=== PATIENT | male | born 1955 | race Caucasian/White ===

== ENCOUNTER 2019-01-22 22:01 | Observation (INO) | payer OTHER, SELFPAY ==
[2019-01-22 22:01] VITALS: BP 146/86; PULSE 92; RESP 19; TEMP 36.7; O2SAT 98; BMI 27.8
--- NOTE | 2019-01-22 22:03 | ED.RN ---
RN CALLED FOR EKG, PULLED OLD EKGS FOR
--- NOTE | 2019-01-22 22:08 | RAD_ITS ---
STUDY: X-RAY CHEST REASON FOR EXAM: Male, 63 years old. Chest pain TECHNIQUE: AP COMPARISON: May 04, 2014. FINDINGS: There is a poorly defined irregular nodular opacity at the left base. Right lung is clear. There is no demonstrated pleural abnormality. Normal size heart. Normal mediastinum and ruben. Normal visualized pulmonary arteries. Normal visualized aortic arch and descending thoracic aorta. Dorsal spine demonstrates spondylosis Normal visualized ribs, clavicles, and shoulders. There is no demonstrated abnormality of the visualized soft tissue structures of the upper abdomen. Density in left lower lobe may represent scarring. CT would be useful for further evaluation to exclude possibility of nodule. This appears slightly more conspicuous when compared with the prior study. RAD/Chest 1 View (Portable) IMPRESSION: Irregular density in left lower lobe possibly scarring although CT recommended to exclude parenchymal nodule Electronically Signed: Ruben Villareal MD at 22:27 EDT , Service support ,
--- NOTE | 2019-01-22 22:09 | EKG12_ITS ---
Test Reason : CP REPEAT Blood Pressure : / mmHG Vent. Rate : 093 BPM Atrial Rate : 093 BPM P-R Int : 184 ms QRS Dur : 086 ms QT Int : 366 ms P-R-T Axes : 038 -17 013 degrees QTc Int : 455 ms Normal sinus rhythm Normal ECG Confirmed by JESSICA GARZON ([id number]), sound editor ARIN BARRY ([id number]) on 01/28/2019 8:14:03 AM Referred By: KRISTEN Confirmed By:JESSICA GARZON
--- NOTE | 2019-01-22 22:10 | ED.DCSUM_ITS ---
History of Present Illness Chief Complaint: Chest Pain Informant: Patient Onset: Today - 2129 Context: Sudden Onset Timing: Continuous Quality: Elephant sitting on my chest Location: Substernal Current Severity: Moderate Maximum Severity: Severe Worsened by: Walking up incline to enter emergency department Relieved by: Nothing Associated Symptoms: Diaphoresis, shortness of breath, nausea radiation left upper extremity Narrative: Patient is a 63-year-old male who presents with substernal heaviness that started at 2100 after he returned from administrative meeting. States he was walking his house. He reports associated symptoms and radiation to the left shoulder and arm. He does have history of coronary disease with stent placement 2005. 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 He discontinued taking aspirin 1-1/2 years ago. He states when he had his cardiac event this occurred during exercise. He did have chest heaviness as well. Prior similar symptoms: Yes - 2005 Recent Illness/Hospitalization: No - Past Medical History (1) Coronary atherosclerosis of [place] coronary vessel Status: Acute Past Medical History - Allergies and Home Meds Allergies/Adverse Reactions: Allergies No Known Allergies Allergy (Verified 01/22/19 22:05) Primary Care Physician: Franny Cortez MD [Primary Care Provider] - Prior records reviewed: Yes Surgical History: - - Cardiac catheterization with angioplasty and stent placement Lives: Spouse/ Significant Other Smoking Status: Never smoker Alcohol: Occasional Drugs: None Review of Systems General: Denies: Chills, Fever, Sweats Eyes: Denies: Visual changes - bilaterally, Blurred Vision - bilaterally, Diplopia ENT: Denies: Rhinorrhea, Sore throat Cardiovascular: Reports: Chest pain. Denies: Palpitations, Heart racing, -, - Respiratory: Reports: Dyspnea, Dyspnea on exertion. Denies: Cough, Sputum, Orthopnea, Paroxysmal nocturnal dyspnea, -, - Gastrointestinal: Reports: - - Is no history of hiatal hernia or GERD.. Denies: Abdominal pain, Nausea, Vomiting, Diarrhea, Melena, Hematochezia Genitourinary: Denies: Dysuria, Hematuria, Frequency Musculoskeletal: Reports: Extremity Pain - Left upper extremity. Denies: Myalgias, Arthralgias, Neck pain, Back pain, Swelling Skin: Denies: Rash, Wounds Neurological: Denies: Headache, Weakness, Numbness Hematologic: Denies: Easy bruising, Easy bleeding Allergy: Denies: Uticaria, Swelling of the mouth Physical Exam Vital Signs/Narrative: Vital Signs Temp Pulse Resp BP Pulse Ox 01/22/19 22:01 98.0 F 92 19 H 146/86 H 98 Inital Vital Signs reviewed: Yes General: Well nourished, Well developed, No Acute Distress Head: Normocephalic, Atraumatic Eyes: Perrl, EOMI ENT: Moist mucous membranes, No rhinorrhea Neck: Supple, Nontender, No lymphadenopathy, No JVD Cardiovascular: Regular rate, Regular rhythm, No murmurs, Normal S1, Normal S2 Respiratory: No distress, CTA bilaterally, Chest nontender Abdomen: Soft, Nontender, Nondistended, Normal bowel sounds Back: Nontender, Normal Inspection Extremities: Nontender, No edema Skin: Normal color, No rash Neurological: Alert, Oriented x3, Cranial nerves II-XII grossly intact, Normal Strength, Normal Sensation Psychological: Normal affect, Normal Mood Diagnostic/Tx/Re-eval Chest X-Ray - ED: 1 View, Read by ED Physician, Normal, Heart, Lungs, Mediastinum, Bony Structures, No Acute Disease - Rhythm Strip Rhythm Strip: Sinus Rhythm Rate: 88 Ectopy: None - EKG Initial EKG Interpretation: Sinus Rhythm - Trickle rate is 90. FL interval 284 ms. QS duration 84 ms. QT duration 360 ms. [place] is normal. The EKG appears normal. The EKG is unchanged from April 25, 2006. - Medical Decision Making Patient presents with concerning story and symptoms. He received 4 baby aspirin, nitro series. First EKG reveals no evidence of ischemia. Heart score is 4. Will repeat EKG 10 to 50 minutes after first to see if there is any change since onset started proximal to 30 minutes prior to presentation. Patient is chest pain has improved markedly with 2 nitros. Presently complaining of nausea. Zofran was ordered. After he received Zofran he will receive his third dose of nitro. Concerned this is cardiac. Hospitalist has been paged for observation status. She was reassessed at 2320. He feels nauseated and slightly woozy. He no longer has left upper extremity discomfort. Reports little improvement after Zofran. Awaiting to speak with hospitalist and admit patient. ED Disposition - Plan for ED Patient: Disposition: Acute Care Hospital [facility] Diagnosis: Angina of effort Referrals: Franny Cortez MD [Primary Care Provider] -
--- NOTE | 2019-01-22 22:15 | EKG12_ITS ---
Test Reason : CP Blood Pressure : / mmHG Vent. Rate : 090 BPM Atrial Rate : 090 BPM P-R Int : 184 ms QRS Dur : 084 ms QT Int : 360 ms P-R-T Axes : 038 -25 022 degrees QTc Int : 440 ms Normal sinus rhythm Normal ECG Confirmed by JESSICA GARZON ([id number]), newspaper or periodical editor ARIN BARRY ([id number]) on 01/28/2019 8:13:34 AM Referred By: KRISTEN Confirmed By:JESSICA GARZON
[2019-01-22] MEDS: Aspirin 81 MG TAB.CHEW 324 MG PO (22:17)
[2019-01-22 22:19] LABS: Absolute Lymphocyte Count 2.01 X10^3/uL (0.83-4.51); Absolute Neutrophil Count 4.1 X10^3/uL (2.0-7.7); Basophil# 0.05 X10^3/uL; Basophil% 0.7 % (0-1); Eosinophil# 0.15 X10^3/uL; Eosinophils% 2.2 % (0-5); Hematocrit 38.5 % (40-54); Lymphocyte # 2.01 X10^3/ul (4.0); Lymphocyte % 29.3 % (19-41); Mean Corp Hgb Conc 36.4 g/dL (32-36); Mean Corpuscular Hgb 34.1 pg (27.0-32.0); Mean Corpuscular Volume 93.7 fL (80-94); Monocyte# 0.48 X10^3/uL; NRBC Flagged by Analyzer 0 % (0-5); Neutrophil # 4.11 X10^3/uL (2.7-7.7); Neutrophil % 59.9 % (47-70); Platelet Count 201 K/mm3 (150-450); RBC Distribution Width SD 43.9 fl (35.1-43.9); Red Blood Count 4.11 M/mm3 (4.6-6.2); White Blood Count 6.9 K/mm3 (4.4-11.0)
[2019-01-22] MEDS: Nitroglycerin SL (ED/IMG/CATH) 0.4 MG TABLET SUBLINGUAL (22:22)
[2019-01-22 22:27] VITALS: BP 135/87; PULSE 103
[2019-01-22] MEDS: Nitroglycerin (INPATIENT USE) 0.4 MG TAB.SUBL SUBLINGUAL ×2 (22:27→22:32)
[2019-01-22 22:32] VITALS: BP 145/84; PULSE 104
[2019-01-22 22:38] LABS: Anion Gap 5 (5-15); BUN 16 mg/dL (7-18); BUN/Creat Ratio 16.7 RATIO (10-20); Calcium,Total 8.5 mg/dL (8.5-10.1); Chloride 110 mmol/L (98-107); Creatinine, Serum 0.96 mg/dL (0.70-1.30); EST Glomerular Filtration Rate 84 mL/min (>60); Est Glom Filt Rate - Afr Amer 102 mL/min (>60); Estimated Creatinine Clearance 89.01 ml/min; Glucose 113 mg/dL (74-106); Potassium 3.8 mmol/L (3.5-5.1); Sodium Level 140 mmol/L (136-145)
[2019-01-22] MEDS: Ondansetron 4 MG/2 ML Vial IV (22:43)
--- NOTE | 2019-01-22 22:45 | ED.RN ---
PT WAS C/O NAUSEA,ZOFRAN GIVEN. AT THE BEDSIDE.
[2019-01-22 22:46] VITALS: BP 107/69; PULSE 79; RESP 16; O2SAT 97
[2019-01-22 23:07] VITALS: BP 120/78; PULSE 77; RESP 16; O2SAT 97
--- NOTE | 2019-01-22 23:23 | PCM.HP.STD ---
Problem List (1) Coronary atherosclerosis of [place] coronary vessel Status: Acute (2) Chest pain at rest Status: Acute History of Present Illness Date of Admission: 01/22/19 Chief Complaint: chest pain The patient is a 63 year old M with a significant history of CAD status post stent in his posterior descending artery in 2005 who presented with chest pain that started at rest and on the same day of admission. He describes chest pain as pressure and as an elephant sitting on his chest. His chest pain radiated to his shoulder and into his left. He described the pain in his left arm aching. He denies any ameliorating or aggravating factors while at home. However the emergency department he was given nitroglycerin x3 to help with his pain. At the time of events evaluation his chest pain is gone away. However he continued to have some pain in his left arm. Patient if his symptoms is nausea without vomiting. Also he denies diaphoresis. He has no shortness of breath. At the emergency department EKG and troponin were unremarkable. His father had triple bypass around age 50. And his paternal grandfather from heart attack at age 52 Past Medical History Medical History: Medical History (Last Updated 01/23/19 @ 00:10 by Giovanni Luevano MD) CAD (coronary artery disease) I25.10 Allergies No Known Allergies Allergy (Verified 01/22/19 22:05) Home Medications: Ambulatory Orders Medication Instructions Recorded Brimonidine Tartrate [Alphagan P] 1 drop EACH EYE DAILY 04/07/17 Centrum Silver Multivitamin 1 tab PO DAILY 04/07/17 Latanoprost 1 drop EACH EYE DAILY 04/07/17 Pravastatin Sodium [Pravachol] 10 mg PO DAILY 04/07/17 Tadalafil [Cialis] 1 tab PO PRN PRN 04/07/17 Ultimate Mira Probiotic Vegan 1 tab PO DAILY 04/07/17 Surgical History: - - Cardiac catheterization with angioplasty and stent placement Lives: Spouse/ Significant Other Smoking Status: Never smoker Alcohol: Occasional Drugs: None - *Family History Maternal History Items: Diabetes, Dementia Paternal History Items: Heart Disease - His father had triple bypass around age 50. And his paternal grandfather from heart attack at age 52 Review of Systems Constitutional: Denies: Chills, Fever, Weight Change HEENT: Denies: Head Aches, Sinus Congestion, Sinus Drainage Cardiovascular: Reports: Chest Pain, Heaviness. Denies: Palpitations Respiratory: Reports: Shortness of Breath. Denies: Cough Gastrointestinal: Reports: Nausea. Denies: Abdominal Pain, Vomiting Genitourinary: Denies: Dysuria Musculoskeletal: Denies: Joint Pain, Joint Tenderness Skin: Denies: Rash, Wounds Neurological: Denies: Numbness, Tingling, Focal weakness Psychiatric: Denies: Anxiety, Depression, Homicidal Ideations, Suicidal Ideations Hematologic/ Lymphatic: Denies: Easy Bruising, Easy Bleeding VTE Information - Inpt Only VTE Present on Admission: No VTE Mechan Device Prophylaxis: SCD's VTE Pharm Prophylaxis ordered?: No Patient Problems: Active and Suspected Problems (Last Updated 01/23/19 @ 00:10 by Giovanni Luevano MD) Angina of [place] (Acute) Chest pain at rest (Acute) - Physical Exam General: Alert, Oriented x3, Cooperative HEENT: Atraumatic, PERRLA, EOMI, Normocephalic Neck: Supple, No JVD, Negative Carotid Bruits Lungs: Clear to auscultation, Normal air movement Cardiovascular: Regular rate, No murmurs Abdomen: Bowel Sounds Present, Soft, Non Tender Extremities: No edema, Capillary Refill Less than 3 Seconds Skin: No rashes, No breakdown Musculoskeletal: No Tenderness to Palpation of Joints or Extremities Neurological: Cranial nerves II-XII grossly intact Psych/Mental Status: Normal Affect, Appropriate Vital Signs Temp Pulse Resp BP Pulse Ox 98.0 F 77 16 120/78 97 01/22/19 22:01 01/22/19 23:07 01/22/19 23:07 01/22/19 23:07 01/22/19 23:07 Oxygen Flow Rate (L/min) 2 Oxygen Delivery Method Nasal Cannula Weight: 95.7 kg Body Mass Index (BMI) 27.8 Laboratory Tests Past 24 Hrs 01/22/19 01/22/19 22:10 22:10 WBC 6.9 RBC 4.11 L Hgb 14.0 Hct 38.5 L MCV 93.7 MCH 34.1 H MCHC 36.4 H RDW Std Deviation 43.9 RDW Coeff of Alejandro 13.0 Plt Count 201 MPV 10.0 Immature Gran % (Auto) 0.900 Neut % (Auto) 59.9 Lymph % (Auto) 29.3 [place] % (Auto) 7.0 Eos % (Auto) 2.2 Baso % (Auto) 0.7 Absolute Neuts (auto) 4.1 Absolute Lymphs (auto) 2.01 Nucleated RBC % 0 Sodium 140 Potassium 3.8 Chloride 110 H Carbon Dioxide 25.0 Anion Gap 5 BUN 16 Creatinine 0.96 Estim Creat Clear Calc 89.01 Est GFR (MDRD) Af Amer 102 Est GFR (MDRD) Non-Af 84 BUN/Creatinine Ratio 16.7 Glucose 113 H Calcium 8.5 Troponin I < 0.015 Assessment/Plan All Active Problems (Last Updated 01/23/19 @ 00:10 by Giovanni Luevano MD) Coronary atherosclerosis of [place] coronary vessel (Acute) Angina of [place] (Acute) Chest pain at rest (Acute) The patient is a 63 year old M with a significant history of CAD status post stent in his posterior descending artery who presented with chest pain that started at rest radiating to his left shoulder and his left and with nausea and shortness of breath consistent with probable cardiac source of chest pain. Chest pain Heart score 5 points (highly suspicious; age 45-64 more reported today risk factors or history of atherosclerotic disease) YOANNA score for unstable angina/NSTEMI 3 points; 13% all cause mortality risk (>= 3 CAD risk factors; known CAD (stenosis >= 50%); severe angina (more than 2 episodes in 24 hours)) Admit to a monitored bed on PCU CXR independently reviewed confirms no acute cardiopulmonary process. EKG independently reviewed confirms sinus rhythm Patient received aspirin 324 mg in emergency department ASA 81 mg p.o. daily SL NTG 0.4 mg prn as needed for chest pain Morphine as needed for pain We will check lipid panel. Statin: Patient is on home pravastatin 10 mg cononr. He thinks that in the past he was taking Crestor but later it was changed to pravastatin. Hold pravastatin and start patient on Lipitor. He is unsure whether he had any allergies to statin. Serial cardiac enzymes Stat EKG as needed for chest pain PT/INR in a.m. Consult cardiology Glaucoma Alphagan and Latanoprost continued DVT prophylaxis SCD Code Visit OBSV E&M: 40459 Initial observation care L3
[2019-01-22 23:51] VITALS: BMI 27.1
[2019-01-22 23:52] VITALS: BMI 27.0
[2019-01-23 00:07] VITALS: BP 112/67; PULSE 70; RESP 16; TEMP 37; O2SAT 96
[2019-01-23 00:11] VITALS: PULSE 70
--- NOTE | 2019-01-23 00:38 | EKG12_ITS ---
Test Reason : CP ADMIT Blood Pressure : / mmHG Vent. Rate : 070 BPM Atrial Rate : 070 BPM P-R Int : 196 ms QRS Dur : 086 ms QT Int : 386 ms P-R-T Axes : 037 -19 019 degrees QTc Int : 416 ms Normal sinus rhythm Normal ECG When compared with ECG of 04-JUL-2006 12:20, MANUAL COMPARISON REQUIRED, DATA IS UNCONFIRMED Confirmed by BRIAN YANEZ, LUIS ([id number]), primer expeditor and drier EVANGELINA LAL ([id number]) on 01/27/2019 1:35:36 PM Referred By: MIREILLE Confirmed By:LUIS TORRES MD
[2019-01-23] MEDS: Atorvastatin Calcium 40 MG Tablet PO (01:18)
[2019-01-23] MEDS: BRIMONIDINE 0.15% 5 ML Bottle 1 DRP EACH EYE (01:19)
[2019-01-23 02:56] VITALS: PULSE 71
[2019-01-23 03:20] VITALS: BP 104/57; PULSE 78; RESP 16; TEMP 37.1; O2SAT 95
[2019-01-23 06:01] LABS: Prothrombin Time (Protime)PT. 12.8 SECONDS (11.7-14.9)
[2019-01-23 06:12] LABS: Cholesterol 151 mg/dL (200); High Density Lipoprotein 30 mg/dL; Triglycerides 396 mg/dL; Very Low Density Lipoprotein 79 mg/dL (5-40)
[2019-01-23 07:00] VITALS: PULSE 62
[2019-01-23 08:31] VITALS: BP 107/76; PULSE 67; RESP 16; TEMP 37.2; O2SAT 98
--- NOTE | 2019-01-23 10:13 | PCM.PN.HOSP ---
Patient Problems: Active and Suspected Problems (Last Updated 01/23/19 @ 00:10 by Giovanni Luevano MD) Angina of effort (Acute) Chest pain at rest (Acute) Subjective: No further chest pain. 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 Symptoms resolved with receiving nitroglycerin. Has had a stent placed before but had different symptoms at that time. His last stent was 2004 or . Vitals/I&O's: Vital Signs Temp Pulse Resp BP Pulse Ox 37.2 C 67 16 107/76 98 01/23/19 08:31 01/23/19 08:31 01/23/19 08:31 01/23/19 08:31 01/23/19 08:31 Oxygen Flow Rate (L/min) 2 Oxygen Delivery Method Room Air Weight: 93 kg Body Mass Index (BMI) 27.0 Intake and Output for Last 24 Hours 01/21/19 01/22/19 01/23/19 23:59 23:59 23:59 Intake Total 0 / 0 Balance 0 / 0 General: Alert, No apparent distress HEENT: Atraumatic, Normocephalic Oral: Moist Mucosa, No Gingival or Mucosal Lesions/ Ulcerations Neck: No Nodes, Thyroid Normal Size and Texture Lungs: Clear to auscultation, Normal air movement, No rhonchi, No wheeze, No rales Cardiovascular: Regular rate, Regular Rhythm, Normal S1, Normal S2 Abdomen: Bowel Sounds Present, Soft, Non Tender, Non-Distended Extremities: No edema, No Calf Tenderness Skin: No rashes, No breakdown Psych/Mental Status: Normal Affect, Appropriate Laboratory Results 01/22/19 22:10: WBC 6.9, RBC 4.11 L, Hgb 14.0, Hct 38.5 L, MCV 93.7, MCH 34.1 H, MCHC 36.4 H, RDW Std Deviation 43.9, RDW Coeff of Alejandro 13.0, Plt Count 201, MPV 10.0, Immature Gran % (Auto) 0.900, Neut % (Auto) 59.9, Lymph % (Auto) 29.3, [place] % (Auto) 7.0, Eos % (Auto) 2.2, Baso % (Auto) 0.7, Absolute Neuts (auto) 4.1, Absolute Lymphs (auto) 2.01, Nucleated RBC % 0 01/22/19 22:10: Sodium 140, Potassium 3.8, Chloride 110 H, Carbon Dioxide 25.0, Anion Gap 5, BUN 16, Creatinine 0.96, Estim Creat Clear Calc 89.01, Est GFR (MDRD) Af Amer 102, Est GFR (MDRD) Non-Af 84, BUN/Creatinine Ratio 16.7, Glucose 113 H, Calcium 8.5, Troponin I < 0.015 01/23/19 01:40: Troponin I < 0.015 01/23/19 05:15: Troponin I < 0.015, Triglycerides 396 H, Cholesterol 151, LDL Cholesterol 42, VLDL Cholesterol 79 H, HDL Cholesterol 30 L 01/23/19 05:15: PT 12.8, INR 1.0 Current Medications Acetaminophen (Tylenol) 650 mg PO Q6H PRN PRN PRN Reason: Mild pain 1-3/Temp > 100.7 F Aspirin (Ecotrin) 81 mg PO DAILY@0800 [facility] Atorvastatin Calcium (Lipitor) 40 mg PO QHS [facility] Last Admin: 01/23/19 01:18 Dose: 40 mg Documented by: Brimonidine Tartrate (Alphagan P 0.15%) 1 drop EACH EYE BID [facility] Last Admin: 01/23/19 01:19 Dose: 1 drop Documented by: Dextrose (D50w Syringe) 0 gm IV X1 PRN; Protocol PRN Reason: Hypoglycemia Glucagon () 1 mg IM .X1 PRN PRN Reason: Hypoglycemia Sodium Chloride () 250 mls @ 15 mls/hr IV .[id number] PRN PRN Reason: SALINE FLUSH Latanoprost (Xalatan Opthalmic) 1 drop EACH EYE DAILY [facility] Morphine Sulfate () 2 mg IV Q3H PRN PRN PRN Reason: Severe Pain (7-10/10) Nitroglycerin (Nitrostat) 0.4 mg SUBLINGUAL Q5M PRN PRN Reason: Chest pain Last Admin: 01/22/19 22:22 Dose: 0.4 mg Documented by: Nitroglycerin (Nitrostat) 0.4 mg SUBLINGUAL Q5M PRN PRN Reason: CARDIAC/CHEST PAIN Ondansetron HCl (Zofran) 4 mg IV Q8H PRN PRN PRN Reason: NAUSEA/VOMITING Sodium Chloride () 10 - 40 ml IV UD PRN PRN Reason: SALINE FLUSH Medical Necessity - Tobacco Use Smoking Status: Never smoker Assessment/Plan All Active Problems (Last Updated 01/23/19 @ 00:10 by Giovanni Luevano MD) Coronary atherosclerosis of [place] coronary vessel (Acute) Angina of [place] (Acute) Chest pain at rest (Acute) 1. Chest pain Currently resolved YOANNA 4. Heart Score 5. Continue ASA and statin cardiology consult pending NPO for now, pending cardiology evaluation Code Visit OBSV E&M: 66975 Subsequent observation care L2
--- NOTE | 2019-01-23 11:02 | DCINST_ITS ---
- Discharge Diagnoses Current Active Problems: Current Active and Chronic Problems (Last Updated 01/23/19 @ 00:10 by Giovanni Luevano MD) Angina of [place] (Acute) Chest pain at rest (Acute) You will use the following diet at home:: Cardiac Your food should be the consistency of: Regular Your liquids should be the consistency of: Regular/Thin Discharge Activity: Return to Normal Activity Call your doctor if you observe: Chest pain Instructions: CHEST PAIN, NonCardiac Allergies/Adverse Reactions: Allergies No Known Allergies Allergy (Verified 01/22/19 22:05) Medications to take at Discharge Brimonidine Tartrate [Alphagan P] 1 drop EACH EYE DAILY 04/07/17 Centrum Silver Multivitamin 1 tab PO DAILY 04/07/17 Latanoprost 1 drop EACH EYE DAILY 04/07/17 Pravastatin Sodium [Pravachol] 10 mg PO DAILY 04/07/17 Ultimate Mira Probiotic Vegan 1 tab PO DAILY 04/07/17 Aspirin E.C. [Ecotrin] 81 mg PO DAILY@0800 tablet 01/23/19 Primary Care Physician: Franny Cortez MD [Primary Care Provider] - Test Results: Test results from this visit will be discussed in further detail at your follow- up appointment, if applicable. Please Follow Up With: Alina Recinos MD When: 1-2 weeks Proposed Discharge Date: 01/23/19
--- NOTE | 2019-01-23 11:04 | DS.PCM_ITS ---
Discharge Date and Diagnosis - Problem List Patient Problems: Active and Suspected Problems (Last Updated 01/23/19 @ 00:10 by Giovanni Luevano MD) Angina of effort (Acute) Chest pain at rest (Acute) Date of Admission: 01/22/19 Date of Discharge: 01/23/19 - Primary Discharge Diagnosis Active and Suspected Problems (Last Updated 01/23/19 @ 00:10 by Giovanni Luevano MD) Angina of [place] (Acute) Chest pain at rest (Acute) Hospital Course and Treatment Imaging Results: Clinical Impression(s) from Imaging Studies Chest X-Ray 01/22/19 22:08 IMPRESSION: Irregular density in left lower lobe possibly scarring although CT recommended to exclude parenchymal nodule Electronically Signed: Ruben Villareal MD at 22:27 EDT , Service support , Grisel: cardiology. Operations: None Procedures: None Summary of Care Provided: The patient is a 63 year old M presents with chest pain. Chest pain resolved after NTG given in the ED. EKG and troponins were negative. Seen by Dr. Recinos, cardiology, who stated the patient could have a stress done as oupt. Patient will follow up with cardiology to arrange.[] Patient Problems: Active and Suspected Problems (Last Updated 01/23/19 @ 00:10 by Giovanni Luevano MD) Angina of [place] (Acute) Chest pain at rest (Acute) - Physical Exam Vital Signs Temp Pulse Resp BP Pulse Ox 37.2 C 67 16 107/76 98 01/23/19 08:31 01/23/19 08:31 01/23/19 08:31 01/23/19 08:31 01/23/19 08:31 Oxygen Flow Rate (L/min) 2 Oxygen Delivery Method Room Air Weight: 93 kg Body Mass Index (BMI) 27.0 Intake and Output for Last 24 Hours 01/21/19 01/22/19 01/23/19 23:59 23:59 23:59 Intake Total 0 / 0 Balance 0 / 0 Laboratory Tests Past 24 Hrs 01/22/19 01/22/19 01/23/19 22:10 22:10 01:40 WBC 6.9 RBC 4.11 L Hgb 14.0 Hct 38.5 L MCV 93.7 MCH 34.1 H MCHC 36.4 H RDW Std Deviation 43.9 RDW Coeff of Alejandro 13.0 Plt Count 201 MPV 10.0 Immature Gran % (Auto) 0.900 Neut % (Auto) 59.9 Lymph % (Auto) 29.3 [place] % (Auto) 7.0 Eos % (Auto) 2.2 Baso % (Auto) 0.7 Absolute Neuts (auto) 4.1 Absolute Lymphs (auto) 2.01 Nucleated RBC % 0 PT INR Sodium 140 Potassium 3.8 Chloride 110 H Carbon Dioxide 25.0 Anion Gap 5 BUN 16 Creatinine 0.96 Estim Creat Clear Calc 89.01 Est GFR (MDRD) Af Amer 102 Est GFR (MDRD) Non-Af 84 BUN/Creatinine Ratio 16.7 Glucose 113 H Calcium 8.5 Troponin I < 0.015 < 0.015 Triglycerides Cholesterol LDL Cholesterol VLDL Cholesterol HDL Cholesterol 01/23/19 01/23/19 05:15 05:15 WBC RBC Hgb Hct MCV MCH MCHC RDW Std Deviation RDW Coeff of Alejandro Plt Count MPV Immature Gran % (Auto) Neut % (Auto) Lymph % (Auto) [place] % (Auto) Eos % (Auto) Baso % (Auto) Absolute Neuts (auto) Absolute Lymphs (auto) Nucleated RBC % PT 12.8 INR 1.0 Sodium Potassium Chloride Carbon Dioxide Anion Gap BUN Creatinine Estim Creat Clear Calc Est GFR (MDRD) Af Amer Est GFR (MDRD) Non-Af BUN/Creatinine Ratio Glucose Calcium Troponin I < 0.015 Triglycerides 396 H Cholesterol 151 LDL Cholesterol 42 VLDL Cholesterol 79 H HDL Cholesterol 30 L Discharge Diet: Low fat/ Low Cholesterol Discharge Activity: Return to Normal Activity Call your doctor if you observe: Chest pain Home Medications: Medications to take at Discharge Brimonidine Tartrate [Alphagan P] 1 drop EACH EYE DAILY 04/07/17 Centrum Silver Multivitamin 1 tab PO DAILY 04/07/17 Latanoprost 1 drop EACH EYE DAILY 04/07/17 Pravastatin Sodium [Pravachol] 10 mg PO DAILY 04/07/17 Ultimate Mira Probiotic Vegan 1 tab PO DAILY 04/07/17 Aspirin E.C. [Ecotrin] 81 mg PO DAILY@0800 tablet 01/23/19 Primary Care Physician: Franny Cortez MD [Primary Care Provider] - Please Follow Up With: Alina Recinos MD When: 1-2 weeks Patient Instructions: CHEST PAIN, NonCardiac Disposition: Home Minutes spent on discharge:: 26 Patient Condition:: Good Medical Necessity - Tobacco Use Smoking Status: Never smoker Meaningful Use Info Meaningful Use Diagnoses (Choose all that apply): None applicable Code Visit OBSV E&M: 78080 Observation care discharge
--- NOTE | 2019-01-23 11:40 | CON.PCM_ITS ---
Reason for Consult Date of Consultation: 01/23/19 Reason for Consultation: chest pain History of Present Illness: The patient is a 63 year old M with a significant history of CAD status post stent in his posterior descending artery in 2005 who presented with chest pain that started at rest and on the same day of admission. He describes chest pain as pressure and as an elephant sitting on his chest. His chest pain radiated to his shoulder and into his left. He described the pain in his left arm aching. He denies any ameliorating or aggravating factors while at home. However the emergency department he was given nitroglycerin x3 to help with his pain. His chest pain eventually went away. He has remained pain-free since then. Back in 2005 patient was having chest pain on exertion it was relieved with rest. He has been walking about 3 miles every day and has not had any chest pain at that time. He exercises in addition to that and does not have chest pain when he does that either. His chest pain was different in quality and 2005 compared to what he was having now. His troponin x3 have been negative and his EKG is normal as well. Telemetry is unremarkable. Review of systems: All systems reviewed. All else is negative except that in the HPI. Past Medical History Allergies/Adverse Reactions: Allergies No Known Allergies Allergy (Verified 01/22/19 22:05) Home Medications: Ambulatory Orders Medication Instructions Recorded Brimonidine Tartrate [Alphagan P] 1 drop EACH EYE DAILY 04/07/17 Centrum Silver Multivitamin 1 tab PO DAILY 04/07/17 Latanoprost 1 drop EACH EYE DAILY 04/07/17 Pravastatin Sodium [Pravachol] 10 mg PO DAILY 04/07/17 Ultimate Mira Probiotic Vegan 1 tab PO DAILY 04/07/17 Aspirin E.C. [Ecotrin] 81 mg PO DAILY@0800 tab 01/23/19 Surgical History: - - Cardiac catheterization with angioplasty and stent placement - *Family History Maternal History Items: Diabetes, Dementia Paternal History Items: Heart Disease - His father had triple bypass around age 50. And his paternal grandfather from heart attack at age 52 Lives: Spouse/ Significant Other Smoking Status: Never smoker Alcohol: Occasional Drugs: None Objective: Vital Signs Temp Pulse Resp BP Pulse Ox 99.0 F 67 16 107/76 98 01/23/19 08:31 01/23/19 08:31 01/23/19 08:31 01/23/19 08:31 01/23/19 08:31 Oxygen Flow Rate (L/min) 2 Oxygen Delivery Method Room Air Weight: 205 lb 0.478 oz Body Mass Index (BMI) 27.0 Intake and Output for Last 24 Hours 01/21/19 01/22/19 01/23/19 23:59 23:59 23:59 Intake Total 0 / 0 Balance 0 / 0 General: Awake, Alert, Oriented x 3 Oral: Moist Mucosa Neck: Supple Lungs: Clear to auscultation Cardiovascular: Regular Rhythm, Normal S1, Normal S2 Vascular: No Carotid Bruits Abdomen: Soft Skin: No Rashes Psych/Mental Status: Appropriate 01/22/19 22:10: WBC 6.9, RBC 4.11 L, Hgb 14.0, Hct 38.5 L, MCV 93.7, MCH 34.1 H, MCHC 36.4 H, Plt Count 201, MPV 10.0, Immature Gran % (Auto) 0.900, Neut % (Auto) 59.9, Lymph % (Auto) 29.3, [place] % (Auto) 7.0, Eos % (Auto) 2.2, Baso % (Auto) 0.7, Absolute Neuts (auto) 4.1, Nucleated RBC % 0 01/22/19 22:10: Sodium 140, Potassium 3.8, Chloride 110 H, Carbon Dioxide 25.0, Anion Gap 5, BUN 16, Creatinine 0.96, Est GFR (MDRD) Af Amer 102, Est GFR (MDRD) Non-Af 84, BUN/Creatinine Ratio 16.7, Glucose 113 H, Calcium 8.5, Troponin I < 0.015 01/23/19 01:40: Troponin I < 0.015 01/23/19 05:15: Troponin I < 0.015, Triglycerides 396 H, Cholesterol 151, LDL Cholesterol 42, VLDL Cholesterol 79 H, HDL Cholesterol 30 L 01/23/19 05:15: PT 12.8, INR 1.0 Rhythm: EKG: ECHO: Stress Test: Cardiac Cath: PCI: CT Surgery: Holter monitor: EPS: PPM: CXR: Chest CT Scan: Assessment/Plan Chest pain: Patient had one episode of chest pain. His cardiac enzymes and troponin have been negative. His chest pain was nonexertional. At this time I think it is reasonable to discharge the patient home and get a stress test as an outpatient. He can follow-up with us as an outpatient as well.
[2019-01-23] MEDS: Aspirin E.C. 81 MG Tablet PO (11:51)
== END 2019-01-23 11:03 | disposition home or self-care (01) ==
LOC: ED 22:42 → PCU 01-23 00:54
PROVIDERS: Admitting Provider Hospitalist; Emergency Provider Emergency Medicine; Family Provider Internal Medicine; PCP Internal Medicine
DX: R07.9 Chest pain, unspecified (principal); I25.10 Atherosclerotic heart disease of native coronary artery without angina pectoris; Z79.899 Other long term (current) drug therapy; Z95.5 Presence of coronary angioplasty implant and graft
CPT/HCPCS: 36415; 71045; 80048; 80061; 84484; 85025; 85610; 93005; 96374; 99218; 99285; A4216; G0378; J2405

== ENCOUNTER → 2019-01-30 07:14 | Outpatient (CLI) | payer OTHER, SELFPAY ==
[2019-01-22 23:52] VITALS: BMI 27.0
--- NOTE | 2019-01-31 15:48 | STRESSREP ---
Stress Test Report Date: 01/31/2019 Procedure: Exercise tolerance test/imaging study Indications: Chest pain Consent: Per the patient Procedure: The patient exercised on a Moncho protocol for 10 minutes achieving a peak heart rate of 157 bpm (100 % predicted maximal heart rate) with a peak blood pressure 138/70 mmHg and a peak MET capacity of 11.7 METs. The baseline ECG demonstrated normal sinus rhythm. The peak exercise ECG demonstrated sinus tachycardia with about [address] depression in the lateral leads. EKG during recovery revealed no evidence of significant ischemia [There were no cardiac dysrhythmias pretest, during exercise, or recovery]. The functional capacity was considered above average for age. There was [no complaint of chest discomfort during exercise or recovery]. The examination was discontinued secondary to shortness of breath. Impression: 1. Technically adequate (percent predicted maximal heart rate greater than 85%) exercise tolerance test 2. Stress test is negative for exercise-induced EKG changes of ischemia 3. The test test is negative for exercise-induced chest pain 4. Functional capacity is above average for age 5. Nuclear images pending Myocardial perfusion imaging study: Technique: The patient was injected with 14.1 mCi of technetium 99m Cardiolite and subsequently rest SPECT Cardiolite nuclear imaging was obtained in the horizontal long, vertical long, and short axis views. The patient exercised on a Moncho protocol. Please see above for details. The patient was injected with 44.3 mCi of technetium 99m Cardiolite and subsequently stress SPECT Cardiolite nuclear imaging was obtained in the horizontal long, vertical long, and short axis views. A gated Cardiolite study at peak stress was obtained. Interpretation: Rest and stress SPECT Cardiolite nuclear imaging status post realignment, normalization, and attenuation correction, demonstrates mildly decreased radioisotope uptake in the apex on the rest images which is slightly worse on the stress images suggestive of possible prior apical myocardial infarction with mild faviola-infarct ischemia. The gated Cardiolite study demonstrates mild apical hypokinesis. The reported LVEF is 62 %. Impression: 1. There is possible prior apical myocardial infarction with mild faviola-infarct ischemia. 2. The gated Cardiolite study reports an LVEF of 62%. This note was generated with [employer] software. It may contain incorrect words, spelling, and punctuation that were not noted in checking the note before signing.
== END ==
PROVIDERS: Family Provider Internal Medicine; PCP Internal Medicine; Referring Provider Specialist; Visit Provider Specialist
DX: R07.9 Chest pain, unspecified (principal); I25.110 Atherosclerotic heart disease of native coronary artery with unstable angina pectoris
CPT/HCPCS: 78452; 93017; A9500; A4216

== ENCOUNTER 2020-07-17 18:10 | Emergency (ER) | payer OTHER, SELFPAY ==
[2019-02-11 15:05] VITALS: BMI 27.6
[2020-07-17 18:12] VITALS: BP 138/90; PULSE 77; RESP 18; TEMP 36.1; O2SAT 97; BMI 26.4
--- NOTE | 2020-07-17 18:25 | CT_ITS ---
STUDY: CT BRAIN WITHOUT CONTRAST REASON FOR EXAM: Male, 64 years old. Fall trauma hit head right IJ pain and headache RADIATION DOSAGE (If Supplied By Facility): CTDIvol = ( 44.99 ) mGy, DLP = ( 829.85 ) mGycm TECHNIQUE: Transaxial CT imaging of the brain was performed without administration of intravenous contrast material. Individualized dose optimization techniques were used for this CT. COMPARISON: No relevant priors. FINDINGS: Brain parenchyma is without focal lesions, mass effect, acute intracranial hemorrhage, extra parenchymal fluid collections, hydrocephalus or herniation. The skull is intact. Right maxillary sinus is opacified. CT/Brain/Head without Contrast IMPRESSION: 1. Normal CT brain. Electronically Signed: Woodrow Reyez MD at 18:56 EST Tel , Service support ,
--- NOTE | 2020-07-17 18:25 | CT_ITS ---
STUDY: CT CERVICAL SPINE WITHOUT CONTRAST REASON FOR EXAM: Male, 64 years old. Fall trauma neck pain RADIATION DOSAGE (If Supplied By Facility): CTDIvol = ( 23.72 ) mGy, DLP = ( 579.16 ) mGycm TECHNIQUE: High resolution transaxial imaging was performed without contrast material. Sagittal and coronal images were reconstructed. Individualized dose optimization techniques were used for this CT. COMPARISON: None FINDINGS: Craniocervical junction and cervical spine are intact and aligned. Mineralization is normal. Paraspinous soft tissues are normal. There are expected age-appropriate changes in the facets, worst on the left at C2-C3. Spinal canal is patent at all levels. There is right C5-C6 severe foraminal stenosis. CT/Spine Cervical without Contras IMPRESSION: 1. No acute osseous injury. Electronically Signed: Woodrow Reyez MD at 18:58 EST Tel , Service support ,
--- NOTE | 2020-07-17 18:26 | ED.DCSUM_ITS ---
History of Present Illness Chief Complaint: Fall Informant: Patient Context: Onset with activity Current Severity: Mild Maximum Severity: Moderate Narrative: Patient presents with continued headache after a fall. He states after getting home from dinner last evening he slipped on the ice in the driveway and fell backwards striking his head on the concrete. He did not lose consciousness but saw stars. helped him up and into the house. He states he put ice to the back of his head every 20 minutes last evening. He complains of continued headache and pressure behind his right eye. He denies any actual vision changes at this time but did have some blurry vision last evening. He denies nausea or vomiting but has had diarrhea today and has taken multiple doses of Pepto. - Past Medical History (1) Atherosclerosis of coronary artery of [place] heart without angina pectoris Status: Chronic Comment: 3.0 x 12 mm Taxus SUZAN to LAD 04/25/06 (2) Essential hypertension Status: Chronic (3) Hyperlipidemia Status: Chronic (4) Presence of stent in coronary artery Status: Chronic Comment: 3.0 x 12 mm Taxus SUZAN to LAD 04/25/06 Past Medical History - Allergies and Home Meds Allergies/Adverse Reactions: Allergies No Known Allergies Allergy (Verified 07/17/20 18:11) Primary Care Physician: Franny Cortez MD [Primary Care Provider] - 1-2 Weeks Past Medical History: None Surgical History: - - Cardiac catheterization with angioplasty and stent placement Lives: Spouse/ Significant Other Smoking Status: Never smoker - Family History Maternal Family History: Family History (Last Reviewed 02/11/19 @ 15:[address] Alina Recinos MD) Father CAD (coronary artery disease) Heart disease Mother Diabetes Dementia Family History: Reports: Diabetes, Dementia Paternal Family History: Family History (Last Reviewed 02/11/19 @ 15:[address] Alina Recinos MD) Father CAD (coronary artery disease) Heart disease Mother Diabetes Dementia Family History: Reports: Heart Disease - His father had triple bypass around age 50. And his paternal grandfather from heart attack at age 52 Review of Systems General: Denies: Chills, Fever Eyes: Reports: - - Pressure behind right arm. Denies: Visual changes - bilaterally ENT: Denies: Bilateral ear pain Cardiovascular: Denies: Chest pain Respiratory: Denies: Dyspnea, Cough Gastrointestinal: Denies: Nausea, Vomiting Musculoskeletal: Reports: Neck pain. Denies: Extremity Pain Skin: Denies: Rash Neurological: Reports: Headache. Denies: Parasthesia, Numbness Hematologic: Denies: Easy bruising, Easy bleeding Allergy: Denies: Uticaria Physical Exam Vital Signs/Narrative: Vital Signs Temp Pulse Resp BP Pulse Ox 07/17/20 18:12 96.9 F L 77 18 138/90 H 97 Inital Vital Signs reviewed: Yes General: Well nourished, Well developed Head: - - Hematoma posterior parietal scalp. No laceration. Eyes: Perrl, EOMI ENT: Moist mucous membranes Neck: Supple, - - Mild C-spine tenderness. No step-off. Cardiovascular: Regular rate, Regular rhythm Respiratory: No distress, CTA bilaterally Abdomen: Soft, Nontender Extremities: Nontender Skin: Normal color Neurological: Alert, Oriented x3, Normal Strength, Normal Sensation Psychological: Normal affect Diagnostic/Tx/Re-eval Impressions Brain CT 07/17/20 18:25 IMPRESSION: 1. Normal CT brain. Electronically Signed: Woodrow Reyez MD at 18:56 EST Tel , Service support , Cervical Spine CT 07/17/20 18:25 IMPRESSION: 1. No acute osseous injury. Electronically Signed: Woodrow Reyez MD at 18:58 EST Tel , Service support , 07/17/20 18:25 CT Cervical [Spine Cervical without Contras] [CT] Stat CT Head [Brain/Head without Contrast] [CT] Stat - Medical Decision Making Patient was sent for CT scan of the head and C-spine. No acute findings are noted. Test results discussed with patient and at bedside. He will use Tylenol or ibuprofen to help with headache at home. He is given instructions for close head injury. He will try using Imodium for his diarrhea. ED Disposition - Plan for ED Patient: Disposition: Home or Assisted Living Diagnosis: Closed head injury Instructions: ED Head Injury (Adult) Referrals: Franny Cortez MD [Primary Care Provider] - 1-2 Weeks
== END 2020-07-17 19:52 | disposition home or self-care (01) ==
PROVIDERS: Emergency Provider Emergency Medicine; PCP Internal Medicine
DX: S00.03XA Contusion of scalp, initial encounter (principal); I25.10 Atherosclerotic heart disease of native coronary artery without angina pectoris; I10 Essential (primary) hypertension; E78.5 Hyperlipidemia, unspecified; Z95.5 Presence of coronary angioplasty implant and graft; Z79.899 Other long term (current) drug therapy; W00.0XXA Fall on same level due to ice and snow, initial encounter; Y93.89 Activity, other specified; Y92.008 Other place in unspecified non-institutional (private) residence as the place of occurrence of the external cause; Y99.8 Other external cause status
CPT/HCPCS: 70450; 72125; 99283

== ENCOUNTER 2020-07-29 08:29 | Outpatient (RCR) | payer OTHER, SELFPAY | END 2020-07-29 23:59 | LOC: IMMUN 08:29 | PROVIDERS: PCP Internal Medicine; Visit Provider Family Medicine | DX: Z23 Encounter for immunization (principal) | CPT/HCPCS: 0011A; 0012A ==

== ENCOUNTER → 2020-08-13 06:46 | Outpatient (CLI) | payer OTHER, SELFPAY ==
[2020-08-03 13:06] VITALS: BMI 29.0
--- NOTE | 2020-08-13 13:36 | STRESSREP_ITS ---
Stress Test Report Date: 08/13/2020 Procedure: Exercise tolerance test/imaging study Indications: Chest pain Consent: Per the patient Procedure: The patient exercised on a Moncho protocol for 9 minutes and 40 seconds achieving a peak heart rate of 151 bpm (96% predicted maximal heart rate) with a peak blood pressure 150/64 mmHg and a peak MET capacity of 11.2 METs. The baseline ECG demonstrated normal sinus rhythm, nonspecific ST-T changes. The peak exercise ECG demonstrated no significant ischemic changes. EKG during recovery revealed no significant ST-T changes [There were no cardiac dysrhythmias pretest, during exercise, or recovery]. The functional capacity was considered excellent for age. There was [no complaint of chest discomfort during exercise or recovery]. The examination was discontinued secondary to achieving target heart rate. Impression: 1. Technically adequate (percent predicted maximal heart rate greater than 85%) exercise tolerance test 2. Stress test is negative for exercise-induced EKG changes of ischemia 3. The test test is negative for exercise-induced chest pain 4. Functional capacity is excellent for age 5. Nuclear images pending Myocardial perfusion imaging study: Technique: The patient was injected with 11.9 mCi of technetium 99m Cardiolite and subsequently rest SPECT Cardiolite nuclear imaging was obtained in the horizontal long, vertical long, and short axis views. The patient exercised on a Moncho protocol. Please see above for details. The patient was injected with 34. 3 mCi of technetium 99m Cardiolite and subsequently stress SPECT Cardiolite nuclear imaging was obtained in the horizontal long, vertical long, and short axis views. A gated Cardiolite study at peak stress was obtained. Interpretation: Rest and stress SPECT Cardiolite nuclear imaging status post realignment, normalization, and attenuation correction, demonstrates mild decrease in the radioisotope uptake in the apex on the rest and stress images after attenuation correction. This is likely due to apical thinning, normal variant. The gated Cardiolite study demonstrates no significant regional wall motion abnormalities. The reported LVEF is 57%. Impression: 1. There is no evidence of significant ischemia or infarction. 2. The gated Cardiolite study reports an LVEF of 57%. This note was generated with [employer] software. It may contain incorrect words, spelling, and punctuation that were not noted in checking the note before signing.
== END ==
PROVIDERS: PCP Internal Medicine; Referring Provider Nurse Practitioner Family; Visit Provider Nurse Practitioner Family
DX: I25.10 Atherosclerotic heart disease of native coronary artery without angina pectoris (principal); R07.9 Chest pain, unspecified; E78.5 Hyperlipidemia, unspecified; I10 Essential (primary) hypertension; Z95.5 Presence of coronary angioplasty implant and graft
CPT/HCPCS: 78452; 93017; A9500; A4216

== ENCOUNTER 2021-02-11 09:20 | Emergency (ER) | payer OTHER, SELFPAY ==
[2021-02-11 09:21] VITALS: BP 129/91; PULSE 65; RESP 20; TEMP 36.4; BMI 28.6
--- NOTE | 2021-02-11 09:47 | CT_ITS ---
EXAM: CT ABDOMEN AND PELVIS WITHOUT INTRAVENOUS CONTRAST : 1955 CLINICAL INDICATION: Kidney Stone TECHNIQUE: Helically acquired images were obtained of the abdomen and pelvis without intravenous contrast. This CT exam was performed using one or more of the following dose reduction techniques: automated exposure control, adjustment of the mA and/or kV according to patient size, and/or use of iterative reconstruction technique. This report was created using [employer] report generation technology. COMPARISON: None. FINDINGS: LOWER THORAX: Unremarkable. Lung bases are clear. No cardiomegaly. No significant pericardial effusion. ABDOMEN: LIVER: Unremarkable. Homogeneous. GALLBLADDER AND BILE DUCTS: Unremarkable. No calcified gallstones. No gallbladder distention or wall edema. No intra- or extrahepatic biliary ductal dilation. PANCREAS: Unremarkable. No focal cystic mass. SPLEEN: Unremarkable. Normal size without focal cystic or solid mass. ADRENALS: Unremarkable. No nodules. KIDNEYS AND URETERS: There is left-sided hydronephrosis and hydroureter. There is a 3 mm stone at the left UVJ. The right kidney is not visualized and may be surgically or congenitally absent Normal renal size and position. STOMACH AND BOWEL: Unremarkable. No stomach or bowel distention. No focal inflammatory change. PELVIS: APPENDIX: No evidence of acute appendicitis. BLADDER: Unremarkable. REPRODUCTIVE: Unremarkable as visualized. No mass. ABDOMEN and PELVIS: INTRAPERITONEAL SPACE: Unremarkable. No ascites or other fluid collection. No free air. BONES/JOINTS: Unremarkable. No suspicious lytic or blastic abnormality. SOFT TISSUES: Unremarkable. No discrete abdominal or pelvic wall hernia. VASCULATURE: Unremarkable. Abdominal aorta is non-dilated. LYMPH NODES: Unremarkable. No enlarged lymph nodes. CT/Abdomen/Pelvis without Cont IMPRESSION: Obstruction of the left collecting system due to a 3 mm stone at the UVJ. There is left-sided hydronephrosis and hydroureter. There is an obstructing calyceal stone. The right kidney is not visualized and may be surgically or congenitally absent. Individualized dose optimization techniques were used for this CT. at 1035 Reported and signed by: Gabo Felder MD Electronically Signed: Gabo Felder MD at 10:34 EDT Tel , Service support ,
--- NOTE | 2021-02-11 09:47 | EDS_ITS ---
HPI History of Present Illness Chief Complaint: Flank Pain Informant: patient Onset/Context/Timing Maximum Severity: Moderate Narrative Narrative: Nontraumatic left flank pain waxing waning since yesterday evening. Waking up multiple times throughout the evening. Denies nausea. Denies radicular symptoms. Reports multiple kidney stones in the past however the last one was 20 years ago none needing intervention. States this feels similar to his kidney stones. Denies urinary symptoms. Denies nausea or vomiting. Reports history of single kidney on the left side, states left side nonfunctional was told either from traumatic from sports versus congenital. History of coronary disease with a LAD stent in 2005. Denies any allergies. Pain currently subsiding. Prior similar symptoms: Yes [facility] Medical History (Updated 02/11/21 @ 11:[address] Ashish Minaya DO) Atherosclerosis of coronary artery of [place] heart without angina pectoris Dysplasia of one kidney Essential hypertension Hyperlipidemia Kidney stones Home Medications pravastatin 10 mg PO DAILY 04/07/17 [History Last Taken 01/21/19] aspirin 81 mg PO DAILY@0800 tab 01/23/19 [Rx Last Taken Unknown] latanoprost 0.005 % eye drops 1 drp OPHTHALMIC DAILY 08/03/20 [History Last Taken Unknown] multivitamin 1 tab PO DAILY 08/03/20 [History Last Taken Unknown] nitroglycerin 0.4 mg sublingual tablet 0.4 mg SUBLINGUAL Q5-15M PRN 08/03/20 [History Last Taken Unknown] tadalafil 20 mg tablet 20 mg PO DAILY PRN 08/03/20 [History Last Taken Unknown] ondansetron 4 mg PO Q6H PRN #10 tab 02/11/21 [Rx Last Taken Unknown] oxycodone-acetaminophen [Percocet] 1 tab PO Q6H PRN 3 Days #12 tab 02/11/21 [Rx Last Taken Unknown] Allergy/AdvReac Type Severity Reaction Status Date / Time No Known Allergies Allergy Verified 02/11/21 10:08 Family History Father , Age 83 CAD (coronary artery disease) CABG x 3, stents Heart disease Mother Diabetes Dementia Surgical History Presence of stent in coronary artery Social History Smoking Status: Never smoker alcohol intake: current alcohol intake frequency: a few times a month substance use type: does not use caffeine: No ROS ROS ED Constitutional Constitutional ED: Denies chills, fever(s) or sweats Eyes Eyes: Denies change in vision ENT ENT ED: Denies dysphagia or sore throat Cardiovascular Cardiovascular: Denies chest pain, leg edema, palpitations or racing heartbeat Respiratory/Chest Respiratory/Chest: Denies cough, dyspnea or dyspnea on exertion Gastrointestinal Gastrointestinal: Denies abdominal pain, diarrhea, nausea or vomiting Genitourinary Genitourinary ED: Denies dysuria, hematuria or urinary frequency Musculoskeletal Musculoskeletal: Reports back pain; Denies extremity pain or neck pain Integumentary Denies rash or wounds Neurologic Neurologic: Denies headache(s), paresthesias or weakness EXAM Physical Exam Const Vital Signs: 02/11/21 09:21 02/11/21 10:56 Temperature 97.5 F L Temperature Source Temporal Pulse Rate 65 75 Respiratory Rate 20 H 17 Blood Pressure 129/91 H 130/85 H Blood Pressure Mean 103 100 Pulse Ox 99 Oxygen Delivery Method Room Air Positive well nourished and well developed General Appearance ED: well developed and NAD HEENT Reports moist mucous membranes normocephalic and atraumatic Eyes PERRL, EOMs intact bilaterally and conjunctivae normal General Eye ED: Yes normal appearance of both eyes Neck no lymphadenopathy and supple General: Negative for tenderness Chest Wall Chest: Negative for tenderness Resp normal respiratory effort and normal air movement Effort and Inspection: symmetric chest movement; Negative for respiratory distress Cardio regular rate, regular rhythm and no murmurs Peripheral Pulses: pulses 2+ throughout GI normal to inspection, nondistended, normoactive bowel sounds and non-tender Palpation: Negative for guarding or rebound tenderness present Back/Spine no CVA tenderness and no thoracic nor lumbar tenderness Back/Spine Narrative: No rash flank region. Extremity normal to inspection General Extremety ED: Negative for edema or tenderness General Extremity: Negative for edema Neuro oriented x3 and no sensory deficits noted Sensorium / Orientation: awake and alert Skin no rashes or lesions noted and no wounds MDM MDM MDM Narrative Medical decision making narrative: Patient nontoxic, renal stone protocol, morphine Zofran fluids given. Labs stable urine hematuria. CT scan 3 mm left UVJ stone with moderate hydronephrosis. No infection in the urine. Pain is controlled. Prescription for Zofran and Percocet. Follow-up given with urology. Return precautions. Per spouse reported calcium stones in the past. All questions answered. Lab Data Attestation: I reviewed the patient's lab results. Labs: Laboratory Results - last 24 hr 02/11/21 02/11/21 02/11/21 09:35 09:35 10:45 WBC 6.0 RBC 4.22 L Hgb 13.8 Hct 40.6 MCV 96.2 H MCH 32.7 H MCHC 34.0 RDW Std Deviation 45.7 H RDW Coeff of Alejandro 13.2 Plt Count 201 MPV 10.4 Immature Gran % (Auto) 1.000 H Neut % (Auto) 71.2 H Lymph % (Auto) 18.5 L [place] % (Auto) 6.3 Eos % (Auto) 2.0 Baso % (Auto) 1.0 Absolute Neuts (auto) 4.3 Absolute Lymphs (auto) 1.11 Nucleated RBC % 0 Sodium 140 Potassium 4.2 Chloride 107 Carbon Dioxide 28.0 Anion Gap 5 BUN 14 Creatinine 1.06 Estim Creat Clear Calc 78.52 Est GFR (MDRD) Af Amer 90 Est GFR (MDRD) Non-Af 75 BUN/Creatinine Ratio 13.2 Glucose 120 H Calcium 8.7 Urine Color Yellow Urine Clarity Clear Urine pH 6.0 Ur Specific [place] 1.005 Urine Protein 15 H Urine Glucose (UA) Normal Urine Ketones Negative Urine Occult Blood 250 H Urine Nitrite Negative Urine Bilirubin Negative Urine Urobilinogen Normal Ur Leukocyte Esterase Negative Urine RBC 0 SEEN Urine WBC 0 SEEN Ur Squamous Epith Cells 0 SEEN Urine Bacteria 0 SEEN Urine Mucus 0 SEEN Radiography Diagnostic Testing: Radiology Impression Abdomen/Pelvis CT 02/11/21 09:47 IMPRESSION: Obstruction of the left collecting system due to a 3 mm stone at the UVJ. There is left-sided hydronephrosis and hydroureter. There is an obstructing calyceal stone. The right kidney is not visualized and may be surgically or congenitally absent. Individualized dose optimization techniques were used for this CT. at 1035 Reported and signed by: Gabo Felder MD Electronically Signed: Gabo Felder MD at 10:34 EDT Tel , Service support , Discharge Plan Triage Chief Complaint: Flank Pain ED Provider: Ashish Minaya Dx/Rx/DC Orders Clinical Impression: Urolithiasis, Hematuria, Renal colic on left side Instructions: ED Hematuria, ED Kidney Stone w/ Colic Prescriptions: New oxycodone-acetaminophen [Percocet] 5-325 mg tablet 1 tab PO Q6H PRN (Reason: pain) 3 Days Qty: 12 RF: 0 ondansetron 4 mg tablet,disintegrating 4 mg PO Q6H PRN (Reason: nausea and vomiting) Qty: 10 RF: 0 No Action latanoprost 0.005 % drops 1 drp OPHTHALMIC DAILY RF: 0 tadalafil [Cialis] 20 mg tablet 20 mg PO DAILY PRN (Reason: Erectile Dysfunction) RF: 0 multivitamin Tablet 1 tab PO DAILY RF: 0 nitroglycerin 0.4 mg tablet, sublingual 0.4 mg SUBLINGUAL Q5-15M PRN (Reason: Chest Pain) RF: 0 pravastatin 10 MG tablet 10 mg PO DAILY RF: 0 aspirin 81 MG tablet 81 mg PO DAILY@0800 RF: 0 Primary Care Provider: Franny Cortez Referrals: Sal Dickerson MD [STAFF PHYSICIAN] - 5-7 Days Franny Cortez MD [Primary Care Provider] - Disposition Disposition: Home, Self Care Discharge Date/Time: 02/11/21 11:58
[2021-02-11 10:03] LABS: Absolute Lymphocyte Count 1.11 X10^3/uL (0.83-4.51); Absolute Neutrophil Count 4.3 X10^3/uL (2.0-7.7); Basophil# 0.06 X10^3/uL; Eosinophil# 0.12 X10^3/uL; Hematocrit 40.6 % (40-54); Hemoglobin 13.8 g/dL (13.0-16.5); Lymphocyte # 1.11 X10^3/ul (0.83-4.51); Lymphocyte % 18.5 % (19-41); Mean Corpuscular Hgb 32.7 pg (27.0-32.0); Mean Corpuscular Volume 96.2 fL (80-94); Mean Platelet Vol. 10.4 fl (6.2-12.0); Monocyte# 0.38 X10^3/uL; Monocyte% 6.3 % (0-10); NRBC Flagged by Analyzer 0 % (0-5); Neutrophil # 4.28 X10^3/uL (2.7-7.7); Neutrophil % 71.2 % (47-70); Platelet Count 201 K/mm3 (150-450); RBC Distribution Width CV 13.2 % (11.6-14.6); RBC Distribution Width SD 45.7 fl (35.1-43.9); Red Blood Count 4.22 M/mm3 (4.6-6.2)
[2021-02-11] MEDS: 0.9% Normal Saline 1,000 ML 250 ML IV (10:07)
[2021-02-11] MEDS: Ondansetron 4 MG/2 ML Vial IV (10:07)
[2021-02-11 10:11] LABS: Anion Gap 5 (5-15); BUN 14 mg/dL (7-18); BUN/Creat Ratio 13.2 RATIO (10-20); Calcium,Total 8.7 mg/dL (8.5-10.1); Chloride 107 mmol/L (98-107); Creatinine, Serum 1.06 mg/dL (0.70-1.30); EST Glomerular Filtration Rate 75 mL/min (>60); Est Glom Filt Rate - Afr Amer 90 mL/min (>60); Estimated Creatinine Clearance 78.52 ml/min; Glucose 120 mg/dL (74-106); Potassium 4.2 mmol/L (3.5-5.1); Sodium Level 140 mmol/L (136-145)
[2021-02-11 10:52] LABS: Bacteria 0 SEEN /hpf (None Seen); Mucous, Urine 0 SEEN /hpf (<or=2+); Red Blood Cells-Urine 0 SEEN /hpf (0-5); Squamous Epithelial Cells - UA 0 SEEN /hpf (0-5); White Blood Cells 0 SEEN /hpf (0-5)
[2021-02-11] MEDS: Morphine 4 MG/ML Syringe IV (10:53)
[2021-02-11 10:56] VITALS: BP 130/85; PULSE 75; RESP 17; O2SAT 99
[2021-02-11 11:02] LABS: Color, Urine Yellow (Yellow); Glucose, Dipstick Normal (Normal); Ketone-Dipstick Negative (Negative); Leukocyte Esterase-Dipstick Negative /ul (Negative); Nitrite-Dipstick Negative (Negative); Occult Blood-Urine 250 /ul (Negative); Protein-Dipstick 15 mg/dl (Negative); Specific Gravity, Urine 1.005 (1.002-1.030); Urine Bilirubin Dipstick Negative (Negative); Urine Clarity Clear (Clear); Urine Urobilinogen Normal (Normal)
== END 2021-02-11 11:58 | disposition home or self-care (01) ==
PROVIDERS: Emergency Provider Emergency Medicine; PCP Internal Medicine
DX: N13.2 Hydronephrosis with renal and ureteral calculous obstruction (principal); I25.10 Atherosclerotic heart disease of native coronary artery without angina pectoris; I10 Essential (primary) hypertension; E78.5 Hyperlipidemia, unspecified; Z87.442 Personal history of urinary calculi; Z79.899 Other long term (current) drug therapy
CPT/HCPCS: 74176; 80048; 81001; 85025; 96361; 96374; 96375; 99283; J7030; A4216; J2405

== ENCOUNTER → 2021-02-15 08:43 | Outpatient (CLI) | payer OTHER, SELFPAY ==
[2021-02-15 10:45] LABS: PSA,Total - Annual Screen 0.45 ng/mL (0.00-4.00)
== END ==
PROVIDERS: PCP Internal Medicine; Referring Provider Urology; Visit Provider Urology
DX: Z12.5 Encounter for screening for malignant neoplasm of prostate (principal)
CPT/HCPCS: 36415; 84153; G0103

== ENCOUNTER 2021-03-18 06:33 | Day surgery (SDC) | payer OTHER, SELFPAY ==
[2021-03-18] VITALS (7 sets, daily range): BP systolic 107–120; BP diastolic 83–92; PULSE 59–74; RESP 16–18; TEMP 35.9–36.2; O2SAT 92–100; BMI 28.2
[2021-03-18] MEDS: Lactated Ringers 1,000 ML 100 ML IV (07:11)
[2021-03-18] MEDS: Cefazolin 2 GM in 0.9% Normal Saline 100 ML IV (07:59)
[2021-03-18] MEDS: Lidocaine 1% (30 ml sdv) 30 ML Vial (08:00)
[2021-03-18] MEDS: Bupivacaine Mpf 0.5% 30 ML VIAL (08:00)
--- NOTE | 2021-03-18 08:00 | BON_PTH ---
PATIENT: CHRISTINA LR LOC: [facility] [place] U#:[id number] AGE/SX: 65/M ROOM: RE03/18/[address]: Dr. Ruben Agee DPM : 1955 BED: DIS: 03/18/2021 SPEC #: [id number] RECD: 03/18/21 11:15 STATUS: TAYLOR REQ #: [id number] HUBERT: 03/18/21 08:[address]: Ruben Agee DEPT: SURGICAL PATHOLOGY RECD BY: Jackie Raymond ENTERED: 03/18/21 12:43 SP TYPE: Bone OTHR DR: Dr. Franny Cortez MD Tissues: Toe, NOS Procedures: Decalcification bone/plaque Surgery Specimen Level IV HEADER OPERATION: First metatarsophalangeal joint cheilectomy, arthroplasty PRE-OP DIAGNOSIS: Hallux right first toe; arthritis first metatarsophalangeal joint TISSUE SUBMITTED: First metatarsophalangeal joint bone MICROSCOPIC DIAGNOSIS First metatarsophalangeal joint, resection: Consistent with degenerative joint disease and hallux deformity. AM:charles 03/23/2021 MICROSCOPIC DESCRIPTION Slides are reviewed. GROSS DESCRIPTION Received in fixative is one container labeled with the patient's name and designated first metatarso-phalangeal joint bone. The specimen consists of multiple pieces of bone that in aggregate measure 4 x 4.5 x 1 cm. The articular surface shows focal area of erosion, eburnation and osteophyte formation. Flex O Writer Operator sections are submitted in two cassettes after decalcification. / SJ:charles 03/18/21 TC:5 CPT: 36955, 90246
--- NOTE | 2021-03-18 08:00 | RAD_ITS ---
STUDY: X-RAY - LEFT FOOT CLINICAL: Intraoperative fluoroscopy for cheilectomy. TECHNIQUE: 3 intraoperative images of the foot. COMPARISON: None. FINDINGS: There is resection of the dorsal distal aspect of the first metatarsal and joint space narrowing of the first metatarsophalangeal joint. 7 seconds of fluoroscopy time was used. Electronically Signed: Philippe Mcneal MD at 9:14 EDT Tel , Service support , RAD/Foot 2 Views
--- NOTE | 2021-03-18 08:00 | PCM.DC ---
Discharge Instructions Diet Discharge Diet: Light diet - advance as tolerated Activity Discharge Activity: Use Walker and Use Crutches Weight Bearing Status: No weight bearing (No weightbearing on toes left foot, ok to put weight on left heel for transitions) Keep extremity elevated above heart level: Left Leg (Keep foot elevated using pillows for at least 50 minutes of every hour) Dressing / Incision Call your doctor if your incision/area has: Continuous Slow Oozing, Sudden Increased Bleeding and Foul Smelling Discharge Call your doctor if you observe: Fever of 101 or Higher, Shortness of breath, Chest pain, Increased palpitations (irregular heartbeat), Calf discomfort and Uncontrolled pain Remove Dressing in: leave in place till F/U Cleanse incision/area with: Keep Dressing Clean & Dry Follow Up Care Please Follow Up With: Ruben Agee DPM When: Within 1 week at office, sooner if needed. Call Dr. Agee over weekend if needed at [phone] ([facility]) or [phone] ([facility]). Test Results: Test results from this visit will be discussed in further detail at your follow-up appointment, if applicable. Discharge Plan Admission Attending Provider: Ruben Agee Primary Care Provider: Franny Cortez Discharge Orders/Prescriptions Prescriptions: New hydrocodone-acetaminophen 5-300 mg tablet 1 - 2 tab PO Q6H PRN (Reason: pain) 4 Days Qty: 20 RF: 0 No Action latanoprost 0.005 % drops 1 drp OPHTHALMIC DAILY RF: 0 tadalafil [Cialis] 20 mg tablet 20 mg PO DAILY PRN (Reason: Erectile Dysfunction) RF: 0 multivitamin Tablet 1 tab PO DAILY RF: 0 nitroglycerin 0.4 mg tablet, sublingual 0.4 mg SUBLINGUAL Q5-15M PRN (Reason: Chest Pain) RF: 0 brimonidine [Alphagan P] 0.15 % drops 1 drp ophthalmic (eye) BID RF: 0 pravastatin 10 MG tablet 10 mg PO DAILY RF: 0 aspirin 81 MG tablet 81 mg PO DAILY@0800 RF: 0 Referrals / Follow Up: Franny Cortez MD [Primary Care Provider] - Disposition Disposition (needs filled in before D/C Order can be placed): Home, Self Care
[2021-03-18] MEDS: Lidocaine 1% /Epi 1:100 (20ml) 20 ML Vial (08:49)
--- NOTE | 2021-03-18 09:00 | PCM.CONS.GEN ---
HPI Consult Data Date of Consult: 03/18/21 HPI Narrative HPI Narrative: CHRISTINA LR, is a 65 M who presents [facility] Medical History (Updated 03/18/21 @ 07:[address] Ruben Agee, MOO) Atherosclerosis of coronary artery of [place] heart without angina pectoris Back pain Cardiology follow-up encounter Dietary restriction Dysplasia of one kidney Essential hypertension High cholesterol History of stress test Hyperlipidemia Kidney stones Non-smoker Wears glasses Home Medications pravastatin 10 mg PO DAILY 04/07/17 [History Last Taken 03/17/21] aspirin 81 mg PO DAILY@0800 tab 01/23/19 [Rx Last Taken 03/11/21] latanoprost 0.005 % eye drops 1 drp OPHTHALMIC DAILY 08/03/20 [History Last Taken 03/17/21] multivitamin 1 tab PO DAILY 08/03/20 [History Last Taken 03/17/21] nitroglycerin 0.4 mg sublingual tablet 0.4 mg SUBLINGUAL Q5-15M PRN 08/03/20 [History Last Taken 03/17/21] tadalafil 20 mg tablet 20 mg PO DAILY PRN 08/03/20 [History Last Taken Unknown] brimonidine 0.15 % eye drops 1 drp OPHTHALMIC (EYE) BID ml 02/21/21 [History Last Taken 03/17/21] hydrocodone-acetaminophen 1 - 2 tab PO Q6H PRN 4 Days #20 tab 03/18/21 [Rx Last Taken Unknown] Allergy/AdvReac Type Severity Reaction Status Date / Time No Known Allergies Allergy Verified 03/11/21 14:02 Family History Father , Age 83 CAD (coronary artery disease) CABG x 3, stents Heart disease Mother Diabetes Dementia Surgical History (Updated 03/11/21 @ 14:12 by Sole Suh) Hx of colonoscopy Hx of hernia repair Presence of stent in coronary artery Social History Smoking Status: Never smoker alcohol intake: current alcohol intake frequency: a few times a month substance use type: does not use caffeine: No
--- NOTE | 2021-03-18 09:05 | RAD_ITS ---
STUDY: X-RAY - LEFT FOOT CLINICAL: Male, 65 years old. post op TECHNIQUE: 3 view(s) of the foot. COMPARISON: None. FINDINGS: Normal talus, calcaneus, and tarsal bones. Plantar calcaneal spur. Normal visualized subtalar, talonavicular, calcaneocuboid, tarsal and tarsometatarsal articulations. Normal metatarsi. Postsurgical changes with subcutaneous emphysema around the metatarsophalangeal joint of the great toe. There are adjacent small bony fragments. Normal tibial and fibular sesamoid bones. Normal interphalangeal joint of the great toe. Normal phalanges of the great toe. Normal second through fifth metatarsophalangeal joints. Normal interphalangeal joints and phalanges of the lesser toes. The soft tissue structures are unremarkable. RAD/Foot min 3 Views IMPRESSION: Postsurgical changes with subcutaneous emphysema around the metatarsophalangeal joint of the great toe. Electronically Signed: Danny Pritchett DO at 21:34 EDT Tel [phone], Service support ,
[2021-03-18 09:54] LABS: AST(SGOT) 20 U/L (15-37); Alanine Aminotransfer ALT/SGPT 32 U/L (16-61); Albumin, Serum 3.4 g/dL (3.2-5.0); Alkaline Phosphatase 87 U/L (45-117); Bilirubin, Direct 0.13 mg/dL (0.00-0.30); Globulin 3.5 g/dL (2.2-4.2); Protein, Total 6.9 g/dL (6.4-8.2)
--- NOTE | 2021-03-18 10:36 | SUR.PHASEII ---
DR. SOLER WAS CALLED TO LET HIM KNOW OF NORMAL LIVER FUNCTION TESTS. PATIENT WALKED WELL WITH CRUTCHES AND SURGICAL BOOT WAS APPLIED. UNDERSTANDS DISCHARGE INSTRUCTIONS.
--- NOTE | 2021-03-18 11:31 | OP.PCM_ITS ---
Report of Operation Date of Procedure: 03/18/21 Pre-Operative Diagnosis: Hallux rigidus with 1st metatarsal phalangeal joint os teoarthritis, left Post-Operative Diagnosis: Same Surgery/Procedure Performed:: 1st metatarsal phalangeal joint cheilectomy arthroplasty Surgeon: Ruben Agee milk route deliverer: Dr. Acosta Type of Anesthesia: Local MAC Specimen's removed: Bone from left 1st metatarsal phalangeal joint sent to pathology Estimated Blood Loss (mL): 10mL Description of Procedure: Indications: This is a 58 year old gentleman with painful left 1st metatarsal phalagneal joint (MTPJ) due to osteoarthritis with hallux rigidus despite extensive conservative/nonsurgical management, but symptoms persists and he continues to have pain and symptoms. This started in 2003 and has bothered him since.He elected to undergo surgery on the left 1st MTPJ via 1st MTPJ cheilectomy arthroplasty. We discussed the procedures, reviewed the rationale of this as well as the possible benefits, risks, potential complications goals and expectations of each. Typical post op recovery was reviewed and he expressed understanding and agreement. The consent forms were reviewed with him, and he freely signed them. Operative Procedure: He was brought back into the operating room and was placed on the operating room table in the supine position. He was carefully secured to the operating room table with a safety belt around the waist. A time out was performed and he was properly identified and the surgical plan was confirmed. He received 900 milligrams of IV Clindamycin for antibiotic prophylaxis. A well padded pneumatic tourniquet was applied around the left ankle. He received MAC anesthesia per the anesthesiologist. The skin was cleansed with 70% Isopropyl alcohol, and 10mL of 0.5% Bupivacaine plain and 10mL of 1% Lidocaine with 1:100,000 epi was given as a 1st ray block on the left foot. The left foot and ankle were scrubbed, prepped, draped in the usual aseptic fashion. A timeout was performed and he was properly identified and the surgical plan was confirmed. Left 1st metatarsal phalangeal joint cheilectomy/arthroplasty: Attention was directed to the 1st MTPJ. There as noted to be significant limited range of motion present (there was no dorisflexion at the 1st MTPJ), with grinding and significant dorsal jamming consistent with significant hallux rigidus and osteoarthritis. There was some lateral deviation of the 1st toe into the 2nd toe. There was significant medial and dorsal eminence at the 1st metatarsal head. There were osteophytes around the joint. A linear longitudinal skin incision was made overlying the dorsal medial 1st MTPJ, medial to the Extensor Hallucis Longus tendon using a 15 scalpel blade. Careful dissection was completed down through the subcutaneous tissue layer, down to the 1st MTPJ capsule, which was incised with a 15 scalpel blade. The 1st MTPJ capsule was very tight with adhesions, it was partially reflected exposing the dorsal, lateral, and medial aspect of the 1st metatarsal head and base of the hallux proximal phalanx. There was a significant dorsal and medial eminence present to the 1st metatarsal head, with bone fragment to the dorsal aspect of the 1st MTPJ. The cartilage to the 1st metatarsal head and base of the hallux proximal phalax was severely worn away and degenerative. There were significant adhesions of the sesamoid apparatus. The adhesions of the 1st MTPJ capsule and sesamoid apparatus were carefully freed up using a McGlamry elevator. Using a powered sagittal saw the dorsal and medial eminences, including the dorsal one third of the 1st metatarsal head was resected. The bone fragment of the dorsal 1st MTPJ was resected, the osteophytes of the dorsal aspect of the base of the hallux proximal phalanx were resected with a bone cutting rongeur. These were all were sent to pathology for further evaluation. Proper resection was confirmed v isually as well as using intra operative fluoroscopy. There was noted to be some patches of degenerative cartilage to the central and plantar 1st metatarsal head which was carefully drilled using a 0.045in kwire to stimulate fibrocartilage formation. The rest of the cartilage to the joint was noted to be healthy and viable. At this time the 1st MTPJ was put through range of motion and it was gliding normally and smoothly, with no impingement, popping, grinding, or crepitus present, there was smooth 90 degrees of 1st metatarsal phalangeal joint dorsiflexion and normal plantarflexion range of motion, confirmed with fluoroscopy. Again there was no popping or catching present with range of motion both with dorsiflexion and plantarflexion. The hallux was in good position. The site was flushed out with copious amounts of normal saline solution. The joint capsule was reapproximated in neutral position using 3-0 Vicryl, the subcutaneous tissue layer was reapproximated using 3-0 Vicryl, the skin was reapproximated using 4-0 Monocryl. Cavilon was painted to the sutured skin edges and steristrips were applied across the sutured skin incisions. All vital structure, including all vital neurovascular structures were properly identified and protected as necessary throughout the procedure. The pneumatic tourniquet was not needed during this procedure and was not inflated. CFT was < 2 seconds to all toes, and had normal temperature gradient present with no evidence of ischemia. Hemostasis was achieved. A dressing was applied which consisted of Betadine soaked adaptic, 4x4 gauze, Kerlix and vikram dressing to the foot. He tolerated the above operative procedure well at the anesthesia well with no complications. He was transported to the recovery room with vital signs stable and in good condition. Post operative orders were placed. Post operative instructions were reviewed him, as well as with his who was with him today. No weightbearing to forefoot of the left foot, keep left foot elevated for at least 50 minutes of every hour, keep dressing clean, dry and intact to foot. Prescription for hydrocodone/acetaminophen 5mg/300 1-2 tabs PO q 6 hours PRN pain. He was dispensed a surgical shoe for the left foot. Post operative xrays were obtained of the left foot in the recovery room which confirmed 1st MTPJ cheilectomy arthroplasty. No post operative complications and otherwise no acute changes and stable xrays otherwise. Grafts/Implants Used: None
== END 2021-03-18 10:50 | disposition home or self-care (01) ==
LOC: SDC 06:34 → AC 06:34
PROVIDERS: PCP Internal Medicine; Referring Provider Podiatrist; Visit Provider Podiatrist
PROC: (CPT 28289; principal; 2021-03-18 07:45)
DX: M20.22 Hallux rigidus, left foot (principal); M19.072 Primary osteoarthritis, left ankle and foot; I25.10 Atherosclerotic heart disease of native coronary artery without angina pectoris; I10 Essential (primary) hypertension; E78.5 Hyperlipidemia, unspecified; Z79.899 Other long term (current) drug therapy
CPT/HCPCS: 01480; 28289; 73620; 73630; 76000; 80076; 88305; 88311; J7120; J2405

== ENCOUNTER → 2022-02-28 | Outpatient (CLI) | payer OTHER, SELFPAY ==
--- NOTE | 2022-02-28 15:30 | RAD_ITS ---
STUDY: X-RAY - ABDOMEN/PELVIS REASON FOR EXAM: Male, 66 years old. Renal calculi. TECHNIQUE: Single AP view of the abdomen / pelvis on 3 images. COMPARISON: None. FINDINGS: Normal visualized lung bases. There is an unremarkable bowel gas pattern. There is no demonstrated free abdominal air. The visualized liver, spleen and kidneys are grossly normal in size and morphology. Overlying bowel gas and feces obscuring much of the renal shadows. Normal soft tissue structures. Normal visualized osseous structures. RAD/Abdomen Single View IMPRESSION: No renal calculi identified. See discussion above. Electronically Signed: Rios Gilmore, at 9:56 EDT ,
== END | disposition home or self-care (01) ==
LOC: RAD 15:27
PROVIDERS: PCP Family Medicine; Referring Provider Urology; Visit Provider Urology
DX: N20.0 Calculus of kidney (principal)
CPT/HCPCS: 74018

== ENCOUNTER 2022-08-17 03:21 | Emergency (ER) | payer OTHER, SELFPAY ==
[2022-08-17 03:22] VITALS: BP 162/103; PULSE 65; RESP 18; TEMP 36.2; O2SAT 97; BMI 29.2
--- NOTE | 2022-08-17 03:39 | CT_ITS ---
INDICATION: Kidney Stone EXAMINATION: CT ABDOMEN AND PELVIS WITHOUT CONTRAST - CT Abdomen And Pelvis W/O Contrast Injection TECHNIQUE: Helically acquired images were obtained of the abdomen and pelvis without oral or IV contrast. A radiation dose optimization technique was used for this scan. IV Contrast dosage and agent: None. Oral contrast: None. COMPARISON: CT abdomen and pelvis 02/11/2021. FINDINGS: LOWER CHEST: Dependent opacities in the lung bases likely atelectasis. LIVER: Tiny low-attenuation structure in the left lobe not completely characterized, appears unchanged. GALLBLADDER AND BILIARY TREE: Grossly unremarkable. PANCREAS: Grossly unremarkable. SPLEEN: Grossly unremarkable. ADRENAL GLANDS: Grossly unremarkable. KIDNEYS AND URETERS: There is a 2 mm calculus in the distal left ureter at the ureterovesical junction. Left ureter is dilated with moderate left hydronephrosis and perinephric stranding. This is very similar to the prior CT. Several other calculi in the left kidney, largest 5 mm. Right kidney not identified. PERITONEUM: No free air. No free fluid. BOWEL: No bowel obstruction. APPENDIX: Visualized and unremarkable. No evidence of acute appendicitis. VESSELS: Abdominal aorta is normal caliber. REPRODUCTIVE ORGANS: Grossly unremarkable URINARY BLADDER: Minimally distended. Prominent wall. ABDOMINAL WALL: Small bilateral inguinal hernias containing only fat, no bowel. BONES: No acute abnormalities. CT/Abdomen/Pelvis without Cont IMPRESSION: Distal left ureteral calculus with moderate left hydroureteronephrosis. Left nephrolithiasis. Solitary left kidney. Bladder wall thickening possibly nondistention correlate for cystitis. Electronically Signed: Grisel Bernal MD at 4:38 EDT ,
--- NOTE | 2022-08-17 03:39 | EX.ED.GUMALE ---
HPI History of Present Illness Chief Complaint: Flank Pain Informant: patient and spouse/S.O. Pain Onset: Today Narrative Narrative: Sudden left flank pain awakening at 2 AM. No radicular symptoms. No nausea or vomiting. No fevers. No urinary symptoms. History similar to kidney stones in the past. No interventions has been required. He states right kidney has atrophied possibly from an injury in high school. He has 1 working kidney. Denies CHARLY history. Prior similar symptoms: Yes PFSH PFSH Medical History Atherosclerosis of coronary artery of [place] heart without angina pectoris Back pain Cardiology follow-up encounter Dietary restriction Dysplasia of one kidney Essential hypertension High cholesterol History of stress test Hyperlipidemia Kidney stones Non-smoker Wears glasses Home Medications aspirin 81 mg tablet,delayed release 81 mg PO DAILY@0800 01/23/19 [Rx Last Taken 03/11/21] latanoprost 0.005 % eye drops 1 drp ophthalmic (eye) DAILY 08/03/20 [History Last Taken 03/17/21] multivitamin 1 tab PO DAILY 08/03/20 [History Last Taken 03/17/21] tadalafil 20 mg tablet (Cialis) 20 mg PO DAILY PRN Erectile Dysfunction 08/03/20 [History Last Taken Unknown] brimonidine 0.15 % eye drops (Alphagan P) 1 drp ophthalmic (eye) BID 02/21/21 [History Last Taken 03/17/21] ondansetron 4 mg disintegrating tablet 4 mg PO Q8H PRN PRN Nausea #10 tabs 08/17/22 [Rx Last Taken Unknown] oxycodone-acetaminophen 5 mg-325 mg tablet (Percocet) 1 tab PO Q6H PRN pain 3 days #12 tabs 08/17/22 [Rx Last Taken Unknown] Allergy/AdvReac Type Severity Reaction Status Date / Time No Known Allergies Allergy Verified 08/17/22 03:26 Family History Father , Age 83 CAD (coronary artery disease) CABG x 3, stents Heart disease Mother Diabetes Dementia Surgical History Hx of colonoscopy Hx of hernia repair Presence of stent in coronary artery (~04/25/06) Social History Smoking Status: Never smoker alcohol intake: current alcohol intake frequency: a few times a month substance use type: does not use caffeine: No ROS ROS ED Constitutional Constitutional ED: Denies chills, fever(s) or sweats Eyes Eyes: Denies change in vision ENT ENT ED: Denies dysphagia or sore throat Cardiovascular Cardiovascular: Denies chest pain, leg edema, palpitations or racing heartbeat Respiratory/Chest Respiratory/Chest: Denies cough, dyspnea or dyspnea on exertion Gastrointestinal Gastrointestinal: Denies abdominal pain, diarrhea, nausea or vomiting Genitourinary Genitourinary ED: Denies dysuria, hematuria or urinary frequency Musculoskeletal Musculoskeletal: Reports back pain; Denies extremity pain or neck pain Integumentary Denies rash or wounds Neurologic Neurologic: Denies headache(s), paresthesias or weakness EXAM Physical Exam Const Vital Signs: 08/17/22 03:22 Temperature 97.2 F L Temperature Source Temporal Pulse Rate 65 Respiratory Rate 18 Blood Pressure 162/103 H Blood Pressure Mean 122 Pulse Ox 97 Oxygen Delivery Method Room Air Positive well nourished and well developed Constitutional Narrative: Uncomfortable nontoxic General Appearance ED: well developed HEENT Reports moist mucous membranes normocephalic and atraumatic Eyes PERRL, EOMs intact bilaterally and conjunctivae normal General Eye ED: Yes normal appearance of both eyes Neck no lymphadenopathy and supple General: Negative for tenderness Chest Wall Chest: Negative for tenderness Resp normal respiratory effort and normal air movement Effort and Inspection: symmetric chest movement; Negative for respiratory distress Cardio regular rate, regular rhythm and no murmurs Peripheral Pulses: pulses 2+ throughout GI normal to inspection, nondistended, normoactive bowel sounds and non-tender GI Narrative: Negative Mark's or McBurney's tenderness Palpation: Negative for guarding or rebound tenderness present Bladder / Kidney Exam: No CVA tenderness Back/Spine no CVA tenderness and no thoracic nor lumbar tenderness Extremity normal to inspection General Extremety ED: Negative for edema or tenderness General Extremity: Negative for edema Neuro oriented x3 and no sensory deficits noted Sensorium / Orientation: awake and alert Skin no rashes or lesions noted and no wounds MDM MDM MDM Narrative Medical decision making narrative: Interventions / MDM: Differential diagnosis: Kidney stone, flank pain Diagnosis considered but do not suspect: N/A My EKG interpretation: N/A Imaging independently reviewed and interpreted by myself: CT scan abdomen pelvis: Nephrolithiasis along with the left 2 mm UVJ stone with moderate hydro-. External documents reviewed: N/A Test considered but not ordered:N/A ED course: Patient uncomfortable renal stone protocol initiated with similar symptoms. Reported atrophy of 1 kidney therefore NSAIDs were avoided. Fluids Zofran morphine. Labs White count of 9 hemoglobin 15.3 creatinine 1.4 up from 1.062-year ago. Urine without infection and noted blood. CT scan confirmed left UVJ stone of 2 mm. Patient feeling better on reevaluation and pain more controlled. Meds to bed with Zofran and morphine. Follow-up with urology given. He will continue to avoid NSAIDs. Follow-up with his PCP to recheck labs. Return precautions. All questions were answered. Re-evaluation: stable Disposition discussed with patient/family/significant other: Patient and significant other Case discussed with consulting clinician: N/A Lab Data Attestation: I reviewed the patient's lab results. Labs: Laboratory Results - last 24 hr 08/17/22 08/17/22 08/17/22 03:40 03:40 03:59 WBC 9.0 RBC 4.59 L Hgb 15.3 Hct 42.7 MCV 93.0 MCH 33.3 H MCHC 35.8 RDW Std Deviation 43.7 RDW Coeff of Alejandro 13.0 Plt Count 246 MPV 9.8 Immature Gran % (Auto) 0.400 Neut % (Auto) 58.2 Lymph % (Auto) 30.6 [place] % (Auto) 6.9 Eos % (Auto) 2.9 Baso % (Auto) 1.0 Absolute Neuts (auto) 5.2 Absolute Lymphs (auto) 2.74 Nucleated RBC % 0 Sodium 141 Potassium 3.7 Chloride 107 Carbon Dioxide 27.0 Anion Gap 7 BUN 25 H Creatinine 1.44 H Estim Creat Clear Calc 57.03 Est GFR (MDRD) Af Amer 63 Est GFR (MDRD) Non-Af 52 L BUN/Creatinine Ratio 17.4 Glucose 121 H Calcium 9.0 Urine Color Yellow Urine Clarity Sl. Cloudy Urine pH 5.0 Ur Specific [facility] 1.020 Urine Protein 30 H Urine Glucose (UA) Normal Urine Ketones Negative Urine Occult Blood 250 H Urine Nitrite Negative Urine Bilirubin Negative Urine Urobilinogen Normal Ur Leukocyte Esterase Negative Urine RBC 50-100 SEEN Urine WBC 0-5 SEEN Ur Squamous Epith Cells 0 SEEN Amorphous Sediment 1+ Urine Bacteria RARE Urine Mucus 0 SEEN Radiography Diagnostic Testing: Clinical Impression(s) from Imaging Studies Abdomen/Pelvis CT 08/17/22 03:39 IMPRESSION: Distal left ureteral calculus with moderate left hydroureteronephrosis. Left nephrolithiasis. Solitary left kidney. Bladder wall thickening possibly nondistention correlate for cystitis. Electronically Signed: Grisel Bernal MD at 4:38 EDT Reading Location ID and State: [facility] / [place] Tel , Service support , Discharge Plan Triage Chief Complaint: Flank Pain ED Provider: Ashish Minaya Dx/Rx/DC Orders Clinical Impression: Urolithiasis, Kidney stone on left side, Hematuria, Renal insufficiency Instructions: ED Hematuria, ED Renal Insufficiency, ED Kidney Stone w/ Colic Prescriptions: New oxycodone-acetaminophen [Percocet] 5-325 mg tablet 1 tab PO Q6H PRN (Reason: pain) 3 Days Qty: 12 0RF ondansetron [ondansetron] 4 mg tablet,disintegrating 4 mg PO Q8H PRN PRN (Reason: Nausea) Qty: 10 0RF No Action latanoprost 0.005 % drops 1 drp OPHTHALMIC DAILY tadalafil [Cialis] 20 mg tablet 20 mg PO DAILY PRN (Reason: Erectile Dysfunction) Rx Instructions: administer approximately 30min before sexual activity; do not use more than 1 dose per 24hrs multivitamin Tablet 1 tab PO DAILY brimonidine [Alphagan P] 0.15 % drops 1 drp ophthalmic (eye) BID Rx Instructions: administer approximately 8 hours apart aspirin 81 MG tablet 81 mg PO DAILY@0800 0RF Primary Care Provider: Yaima Massey Referrals: Sal Dickerson MD [Med Staff - Active Staff] - 3-5 Days Yaima Massey DO [Primary Care Provider] - 1 Week Activity Restrictions/Additional Instructions: 2 mm left UVJ stone. White count 9. Creatinine 1.4 up from 1.06 2 years ago. Urine negative for infection. Noted blood. Continue to avoid NSAIDs. Use Percocet as needed. Continue increasing oral fluids. Follow-up with urology. Return if worsening symptoms. Follow-up your doctor to recheck laboratory studies. Disposition Disposition: Home, Self Care Discharge Date/Time: 08/17/22 05:22
[2022-08-17 03:47] LABS: Absolute Lymphocyte Count 2.74 X10^3/uL (0.83-4.51); Absolute Neutrophil Count 5.2 X10^3/uL (2.0-7.7); Basophil# 0.09 X10^3/uL; Eosinophil# 0.26 X10^3/uL; Eosinophils% 2.9 % (0-5); Hematocrit 42.7 % (40-54); Hemoglobin 15.3 g/dL (13.0-16.5); Lymphocyte # 2.74 X10^3/ul (0.83-4.51); Lymphocyte % 30.6 % (19-41); Mean Corp Hgb Conc 35.8 g/dL (32-36); Mean Corpuscular Hgb 33.3 pg (27.0-32.0); Mean Platelet Vol. 9.8 fl (6.2-12.0); Monocyte# 0.62 X10^3/uL; Monocyte% 6.9 % (0-10); NRBC Flagged by Analyzer 0 % (0-5); Neutrophil % 58.2 % (47-70); Platelet Count 246 K/mm3 (150-450); RBC Distribution Width SD 43.7 fl (35.1-43.9); Red Blood Count 4.59 M/mm3 (4.6-6.2)
[2022-08-17] MEDS: 0.9% Normal Saline 1,000 ML 250 ML IV (03:54)
[2022-08-17] MEDS: Ondansetron 4 MG/2 ML Vial IV (03:54)
[2022-08-17] MEDS: Morphine 4 MG/ML Syringe IV (03:54)
[2022-08-17 03:59] LABS: Anion Gap 7 (5-15); BUN 25 mg/dL (7-18); BUN/Creat Ratio 17.4 RATIO (10-20); Chloride 107 mmol/L (98-107); Creatinine, Serum 1.44 mg/dL (0.70-1.30); EST Glomerular Filtration Rate 52 mL/min (>60); Est Glom Filt Rate - Afr Amer 63 mL/min (>60); Estimated Creatinine Clearance 57.03 ml/min; Glucose 121 mg/dL (74-106); Potassium 3.7 mmol/L (3.5-5.1); Sodium Level 141 mmol/L (136-145)
[2022-08-17 04:04] LABS: Mucous, Urine 0 SEEN /hpf (<or=2+); Squamous Epithelial Cells - UA 0 SEEN /hpf (0-5)
[2022-08-17 04:05] LABS: Color, Urine Yellow (Yellow); Glucose, Dipstick Normal (Normal); Ketone-Dipstick Negative (Negative); Leukocyte Esterase-Dipstick Negative /ul (Negative); Nitrite-Dipstick Negative (Negative); Occult Blood-Urine 250 /ul (Negative); Protein-Dipstick 30 mg/dl (Negative); Urine Bilirubin Dipstick Negative (Negative); Urine Clarity Sl. Cloudy (Clear); Urine Urobilinogen Normal (Normal)
[2022-08-17 04:17] LABS: Red Blood Cells-Urine 50-100 SEEN /hpf (0-5)
[2022-08-17 04:18] LABS: Amorphous Sediment 1+; Bacteria RARE /hpf (None Seen); White Blood Cells 0-5 SEEN /hpf (0-5)
== END 2022-08-17 05:22 | disposition home or self-care (01) ==
PROVIDERS: Emergency Provider Emergency Medicine; PCP Family Medicine; Visit Provider Emergency Medicine
DX: N13.2 Hydronephrosis with renal and ureteral calculous obstruction (principal); I25.10 Atherosclerotic heart disease of native coronary artery without angina pectoris; R31.9 Hematuria, unspecified; E78.00 Pure hypercholesterolemia, unspecified; I10 Essential (primary) hypertension
CPT/HCPCS: 74176; 80048; 81001; 85025; 96361; 96374; 96375; 99283; J7030; A4216; J2405

== ENCOUNTER 2022-08-18 12:59 | Emergency (ER) | payer OTHER, SELFPAY ==
[2022-08-18 13:00] VITALS: BP 162/108; PULSE 82; RESP 16; TEMP 36.6; O2SAT 98; BMI 29.9
[2022-08-18] MEDS: Ondansetron 4 MG/2 ML Vial IV (13:45)
[2022-08-18] MEDS: Ketorolac 15 MG/ML Vial IV (13:46)
[2022-08-18] MEDS: 0.9% Normal Saline 1,000 ML 1000 ML IV (13:47)
[2022-08-18] MEDS: Morphine 4 MG/ML Syringe IV (13:47)
[2022-08-18 14:51] LABS: Absolute Lymphocyte Count 0.57 X10^3/uL (0.83-4.51); Absolute Neutrophil Count 11.2 X10^3/uL (2.0-7.7); Basophil# 0.05 X10^3/uL; Basophil% 0.4 % (0-1); Eosinophil# 0.04 X10^3/uL; Eosinophils% 0.3 % (0-5); Hematocrit 39.1 % (40-54); Hemoglobin 13.3 g/dL (13.0-16.5); Lymphocyte # 0.57 X10^3/ul (0.83-4.51); Lymphocyte % 4.5 % (19-41); Mean Corpuscular Hgb 32.4 pg (27.0-32.0); Mean Corpuscular Volume 95.4 fL (80-94); Mean Platelet Vol. 9.8 fl (6.2-12.0); Monocyte# 0.68 X10^3/uL; Monocyte% 5.4 % (0-10); NRBC Flagged by Analyzer 0 % (0-5); Neutrophil # 11.24 X10^3/uL (2.7-7.7); Neutrophil % 88.9 % (47-70); POSITIVE DIFFERENTIAL YES; Platelet Count 204 K/mm3 (150-450); RBC Distribution Width CV 12.9 % (11.6-14.6); RBC Distribution Width SD 44.3 fl (35.1-43.9); White Blood Count 12.6 K/mm3 (4.4-11.0)
[2022-08-18 14:54] LABS: Differential Indicated SCAN CRITERIA MET
[2022-08-18 15:05] LABS: Anion Gap 5 (5-15); BUN 35 mg/dL (7-18); BUN/Creat Ratio 12.1 RATIO (10-20); Calcium,Total 8.4 mg/dL (8.5-10.1); Chloride 108 mmol/L (98-107); Creatinine, Serum 2.89 mg/dL (0.70-1.30); EST Glomerular Filtration Rate 23 mL/min (>60); Est Glom Filt Rate - Afr Amer 28 mL/min (>60); Estimated Creatinine Clearance 28.42 ml/min; Glucose 110 mg/dL (74-106); Potassium 5.8 mmol/L (3.5-5.1); Sodium Level 137 mmol/L (136-145)
--- NOTE | 2022-08-18 15:18 | EDS_ITS ---
HPI History of Present Illness Chief Complaint: Flank Pain Informant: patient Onset/Context/Timing Onset: Yesterday Context: Sudden Onset Timing: Continuous Quality: Sharp Location: Left flank Worsened by: Nothing Relieved by: Ice packs Narrative Narrative: Patient presents with left flank pain that began yesterday. Patient states his pain is sharp. Patient states it is localized to the left flank. Patient midst to some nausea and vomiting. Patient states it did get better with ice packs initially but states this has not been helping. Patient denies any fevers or chills. Patient denies any dysuria or hematuria. Patient was seen recently and diagnosed with a 2 mm left distal ureteral calculus. Patient only has a left kidney. Patient does not have a right kidney. [facility] Medical History Atherosclerosis of coronary artery of [place] heart without angina pectoris Back pain Cardiology follow-up encounter Dietary restriction Dysplasia of one kidney Essential hypertension High cholesterol History of stress test Hyperlipidemia Kidney stones Non-smoker Wears glasses Home Medications aspirin 81 mg tablet,delayed release 81 mg PO DAILY@0800 01/23/19 [Rx Last Taken 03/11/21] latanoprost 0.005 % eye drops 1 drp ophthalmic (eye) DAILY 08/03/20 [History Last Taken 03/17/21] multivitamin 1 tab PO DAILY 08/03/20 [History Last Taken 03/17/21] brimonidine 0.15 % eye drops (Alphagan P) 1 drp ophthalmic (eye) BID 02/21/21 [History Last Taken 03/17/21] ondansetron 4 mg disintegrating tablet 4 mg PO Q8H PRN PRN Nausea #10 tabs 08/17/22 [Rx Last Taken Unknown] oxycodone-acetaminophen 5 mg-325 mg tablet (Percocet) 1 tab PO Q6H PRN pain 3 days #12 tabs 08/17/22 [Rx Last Taken Unknown] Allergy/AdvReac Type Severity Reaction Status Date / Time No Known Allergies Allergy Verified 08/18/22 13:02 Family History Father , Age 83 CAD (coronary artery disease) CABG x 3, stents Heart disease Mother Diabetes Dementia Surgical History Hx of colonoscopy Hx of hernia repair Presence of stent in coronary artery (~04/25/06) Social History Smoking Status: Never smoker alcohol intake: current alcohol intake frequency: a few times a month substance use type: does not use caffeine: No ROS ROS ED Constitutional Constitutional ED: Denies chills or fever(s) Eyes Eyes: Denies blurry vision or change in vision ENT ENT ED: Denies rhinorrhea or sore throat Cardiovascular Cardiovascular: Denies chest pain or palpitations Respiratory/Chest Respiratory/Chest: Denies cough or dyspnea Gastrointestinal Gastrointestinal: Reports abdominal pain, nausea and vomiting Genitourinary Genitourinary ED: Denies dysuria or hematuria Musculoskeletal Musculoskeletal: Reports back pain; Denies neck pain Integumentary Denies abscess or rash Neurologic Neurologic: Denies headache(s) or weakness Allergic/Immunologic Allergic/Immunologic ED: Denies mouth swelling or urticaria EXAM Physical Exam Const Vital Signs: 08/18/22 13:00 08/18/22 17:33 Temperature 98 F Temperature Source Temporal Pulse Rate 82 73 Respiratory Rate 16 16 Blood Pressure 162/108 H 139/81 H Blood Pressure Mean 126 100 Pulse Ox 98 98 Oxygen Delivery Method Room Air Room Air Positive well nourished and well developed General Appearance ED: well developed and NAD HEENT Reports moist mucous membranes Neck supple and no JVD Resp normal respiratory effort and clear to auscultation bilaterally Cardio regular rate, regular rhythm and no murmurs GI normal to inspection, nondistended, normoactive bowel sounds Palpation: soft and tender LLQ; Negative for guarding or rebound tenderness present Back/Spine General Back: CVA tenderness left Extremity normal to inspection General Extremety ED: Negative for edema or tenderness General Extremity: Negative for edema Neuro oriented x3, CN's II-XII intact bilaterally and no sensory deficits noted Sensorium / Orientation: alert Motor Exam: strength 5/5 throughout Psych mental status grossly normal Skin no rashes or lesions noted MDM MDM MDM Narrative Medical decision making narrative: Differential diagnosis includes left distal ureteral calculus, acute kidney injury, urinary tract infection, and electrolyte abnormality. CBC will be obtained to assess for leukocytosis and anemia. Basic metabolic profile will be obtained to assess for renal function and electrolyte abnormality. Urinalysis will be obtained to assess for urinary tract infection and hematuria. Lab Data Attestation: I reviewed the patient's lab results. Lab results narrative: CBC shows a mild leukocytosis of 12.6. Basic metabolic profile shows a mild hyperkalemia of 5.8. BUN was 35 and creatinine was 2.89. These are increased from previous results. Labs: Laboratory Results - last 24 hr 08/18/22 08/18/22 08/18/22 14:40 14:40 16:40 WBC 12.6 H RBC 4.10 L Hgb 13.3 Hct 39.1 L MCV 95.4 H MCH 32.4 H MCHC 34.0 D RDW Std Deviation 44.3 H RDW Coeff of Alejandro 12.9 Plt Count 204 MPV 9.8 Immature Gran % (Auto) 0.500 Neut % (Auto) 88.9 H Lymph % (Auto) 4.5 L [place] % (Auto) 5.4 Eos % (Auto) 0.3 Baso % (Auto) 0.4 Absolute Neuts (auto) 11.2 H Absolute Lymphs (auto) 0.57 L Nucleated RBC % 0 Differential Comment SCANNED Sodium 137 Potassium 5.8 H Chloride 108 H Carbon Dioxide 24.0 Anion Gap 5 BUN 35 H Creatinine 2.89 H Estim Creat Clear Calc 28.42 Est GFR (MDRD) Af Amer 28 L Est GFR (MDRD) Non-Af 23 L BUN/Creatinine Ratio 12.1 Glucose 110 H Calcium 8.4 L Urine Color Yellow Urine Clarity Clear Urine pH 5.0 Ur Specific [place] 1.015 Urine Protein 30 H Urine Glucose (UA) Normal Urine Ketones Negative Urine Occult Blood 250 H Urine Nitrite Negative Urine Bilirubin Negative Urine Urobilinogen Normal Ur Leukocyte Esterase 25 H Urine RBC 0 SEEN Urine WBC 0-5 SEEN Ur Squamous Epith Cells 0 SEEN Urine Bacteria 0 SEEN Urine Mucus 0 SEEN Treatment and Re-Evaluation :: Patient was given IV fluids, morphine, Zofran, and Toradol initially. Patient states his pain has nearly resolved. Patient states he has mild pain in his lower lumbar area. Patient was advised of his findings. Patient was given calcium gluconate, insulin, and glucose for his mild hyperkalemia. Case was discussed with Dr. Dickerson. He felt that the patient should pass the stone. He will follow-up with the patient as an outpatient. Patient was instructed to continue the Percocet that was prescribed for him yesterday. Patient was instructed to return if worse in any way. Patient understood and was agreeable with the plan. All questions were answered. Discharge Plan Triage Chief Complaint: Flank Pain ED Provider: Robert Gayle Dx/Rx/DC Orders Clinical Impression: Kidney stone on left side, Urolithiasis, Hyperkalemia Instructions: ED Kidney Stone w/ Colic Prescriptions: No Action latanoprost 0.005 % drops 1 drp OPHTHALMIC DAILY multivitamin Tablet 1 tab PO DAILY brimonidine [Alphagan P] 0.15 % drops 1 drp ophthalmic (eye) BID Rx Instructions: administer approximately 8 hours apart aspirin 81 MG tablet 81 mg PO DAILY@0800 0RF oxycodone-acetaminophen [Percocet] 5-325 mg tablet 1 tab PO Q6H PRN (Reason: pain) 3 Days Qty: 12 0RF ondansetron [ondansetron] 4 mg tablet,disintegrating 4 mg PO Q8H PRN PRN (Reason: Nausea) Qty: 10 0RF Primary Care Provider: Yaima Massey Referrals: Sal Dickerson MD [Med Staff - Active Staff] - 3-5 Days Yaima Massey DO [Primary Care Provider] - Disposition Disposition: Home, Self Care
[2022-08-18 15:30] LABS: Differential Comment SCANNED
[2022-08-18 16:46] LABS: Bacteria 0 SEEN /hpf (None Seen); Mucous, Urine 0 SEEN /hpf (<or=2+); Red Blood Cells-Urine 0 SEEN /hpf (0-5); Squamous Epithelial Cells - UA 0 SEEN /hpf (0-5)
[2022-08-18 17:12] LABS: Color, Urine Yellow (Yellow); Glucose, Dipstick Normal (Normal); Ketone-Dipstick Negative (Negative); Leukocyte Esterase-Dipstick 25 /ul (Negative); Nitrite-Dipstick Negative (Negative); Occult Blood-Urine 250 /ul (Negative); Protein-Dipstick 30 mg/dl (Negative); Specific Gravity, Urine 1.015 (1.002-1.030); Urine Bilirubin Dipstick Negative (Negative); Urine Clarity Clear (Clear); Urine Urobilinogen Normal (Normal)
[2022-08-18 17:24] LABS: White Blood Cells 0-5 SEEN /hpf (0-5)
[2022-08-18 17:33] VITALS: BP 139/81; PULSE 73; RESP 16; O2SAT 98
[2022-08-18] MEDS: Insulin Lispro 10 UNIT in Syringe 0 ML 6 UNIT IV (18:11)
[2022-08-18] MEDS: Calcium Gluconate IV 3 GM in Syringe 1 EACH IV (18:11)
[2022-08-18] MEDS: Dextrose 50%-Water 25 GM/50 ML DISP.SYRIN IV (18:11)
== END 2022-08-18 18:20 | disposition home or self-care (01) ==
PROVIDERS: Emergency Provider Emergency Medicine; PCP Family Medicine; Visit Provider Emergency Medicine
DX: N20.0 Calculus of kidney (principal); E87.5 Hyperkalemia; I10 Essential (primary) hypertension; E78.00 Pure hypercholesterolemia, unspecified; I25.10 Atherosclerotic heart disease of native coronary artery without angina pectoris
CPT/HCPCS: 36415; 80048; 81001; 85025; 96361; 96374; 96375; 99283; J0610; J2405

== ENCOUNTER 2022-08-19 23:08 | Inpatient (IN) | payer OTHER, SELFPAY ==
[2022-08-19 23:09] VITALS: BP 158/85; PULSE 79; RESP 20; TEMP 36.2; O2SAT 91; BMI 31.1
--- NOTE | 2022-08-19 23:18 | EKG12_ITS ---
Test Reason : Blood Pressure : / mmHG Vent. Rate : 077 BPM Atrial Rate : 077 BPM P-R Int : 200 ms QRS Dur : 082 ms QT Int : 356 ms P-R-T Axes : 059 003 029 degrees QTc Int : 402 ms Normal sinus rhythm Inferior infarct , age undetermined Abnormal ECG Confirmed by SARAH YANEZ, AMADOU ([id number]), editor producer HIREN MARTINEZ ([id number]) on 08/21/2022 9:55:37 AM Referred By: Sal Dickerson Confirmed By:CARLOS SMITH MD
[2022-08-19] MEDS: Ketorolac 15 MG/ML Vial IV (23:26)
[2022-08-19 23:32] LABS: Absolute Lymphocyte Count 1.15 X10^3/uL (0.83-4.51); Basophil# 0.05 X10^3/uL; Basophil% 0.4 % (0-1); Eosinophil# 0.21 X10^3/uL; Eosinophils% 1.7 % (0-5); Hematocrit 39.1 % (40-54); Hemoglobin 13.8 g/dL (13.0-16.5); Lymphocyte # 1.15 X10^3/ul (0.83-4.51); Lymphocyte % 9.5 % (19-41); Mean Corp Hgb Conc 35.3 g/dL (32-36); Mean Corpuscular Hgb 32.8 pg (27.0-32.0); Mean Corpuscular Volume 92.9 fL (80-94); Mean Platelet Vol. 9.8 fl (6.2-12.0); Monocyte# 0.73 X10^3/uL; NRBC Flagged by Analyzer 0 % (0-5); Neutrophil # 9.96 X10^3/uL (2.7-7.7); Neutrophil % 81.9 % (47-70); Platelet Count 209 K/mm3 (150-450); RBC Distribution Width CV 12.9 % (11.6-14.6); RBC Distribution Width SD 43.7 fl (35.1-43.9); Red Blood Count 4.21 M/mm3 (4.6-6.2); White Blood Count 12.2 K/mm3 (4.4-11.0)
--- NOTE | 2022-08-19 23:34 | EX.ED.DYSGE1 ---
HPI History of Present Illness Chief Complaint: Flank Pain Detail of Chief Complaint: Unable to urinate Informant: patient Narrative Narrative: Patient present secondary to left flank pain and unable to urinate. He has been in the ER twice this week already secondary to a 2 mm distal left ureter stone. He only has a left kidney. When he was seen yesterday his pain was controlled with medication. He was noted to have a an elevated potassium at 5.8 and was treated with medication while here. Patient was discussed with Dr. Dickerson and arrangements were made for outpatient follow-up. Patient returns again tonight stating that he has not been able to urinate since he left yesterday. He feels the urge to urinate but cannot go. He also developed shortness of breath approximate hour prior to arrival. [facility] Medical History Atherosclerosis of coronary artery of [place] heart without angina pectoris Back pain Cardiology follow-up encounter Dietary restriction Dysplasia of one kidney Essential hypertension High cholesterol History of stress test Hyperlipidemia Kidney stones Non-smoker Wears glasses Home Medications aspirin 81 mg tablet,delayed release 81 mg PO DAILY@0800 01/23/19 [Rx Last Taken 08/19/22] latanoprost 0.005 % eye drops 1 drp ophthalmic (eye) DAILY eye health 08/03/20 [History Last Taken 08/19/22] multivitamin 1 tab PO DAILY supplement 08/03/20 [History Last Taken 08/19/22] brimonidine 0.15 % eye drops (Alphagan P) 1 drp ophthalmic (eye) BID eye health 02/21/21 [History Last Taken 08/19/22] ondansetron 4 mg disintegrating tablet 4 mg PO Q8H PRN PRN Nausea #10 tabs 08/17/22 [Rx Last Taken 08/19/22] oxycodone-acetaminophen 5 mg-325 mg tablet (Percocet) 1 tab PO Q6H PRN pain 3 days #12 tabs 08/17/22 [Rx Last Taken 08/19/22] Allergy/AdvReac Type Severity Reaction Status Date / Time No Known Allergies Allergy Verified 08/19/22 23:09 Family History Father , Age 83 CAD (coronary artery disease) CABG x 3, stents Heart disease Mother Diabetes Dementia Surgical History Hx of colonoscopy Hx of hernia repair Presence of stent in coronary artery (~04/25/06) Social History Smoking Status: Never smoker alcohol intake: current alcohol intake frequency: a few times a month substance use type: does not use caffeine: No ROS ROS ED Constitutional Constitutional ED: Denies chills or fever(s) Eyes Eyes: Denies change in vision or discharge from eye(s) ENT ENT ED: Denies discharge from eye(s), rhinorrhea or sore throat Cardiovascular Cardiovascular: Denies chest pain or palpitations Respiratory/Chest Respiratory/Chest: Reports dyspnea; Denies cough Gastrointestinal Gastrointestinal: Reports abdominal pain; Denies diarrhea, nausea or vomiting Genitourinary Genitourinary ED: Reports difficulty urinating Musculoskeletal Musculoskeletal: Reports back pain; Denies extremity pain Integumentary Denies Abrasions or rash Neurologic Neurologic: Denies headache(s) or weakness Allergic/Immunologic Allergic/Immunologic ED: Denies lip swelling or urticaria EXAM Physical Exam Const Vital Signs: 08/19/22 23:09 08/19/22 23:39 08/19/22 23:58 Temperature 97.2 F L Temperature Source Temporal Pulse Rate 79 68 77 Respiratory Rate 20 H 23 H 20 H Respiratory Pattern Tachypnea Tachypnea Blood Pressure 158/85 H Blood Pressure Mean 109 Blood Pressure Source Blood Pressure Position Blood Pressure Location Pulse Ox 91 Oxygen Delivery Method Room Air Oxygen Flow Rate (L/min) 08/20/22 02:18 08/20/22 02:22 08/20/22 02:23 Temperature 98.5 F Temperature Source Oral Pulse Rate 70 69 Respiratory Rate 19 H 19 H Respiratory Pattern Normal Blood Pressure 139/82 H 139/82 H Blood Pressure Mean 101 101 Blood Pressure Source Monitor Blood Pressure Position Semi-Fowlers Blood Pressure Location Left Arm Pulse Ox 94 93 Oxygen Delivery Method Nasal Cannula Nasal Cannula Oxygen Flow Rate (L/min) 3 08/20/22 02:29 Temperature Temperature Source Pulse Rate Respiratory Rate Respiratory Pattern Blood Pressure Blood Pressure Mean Blood Pressure Source Blood Pressure Position Blood Pressure Location Pulse Ox 88 Oxygen Delivery Method Room Air Oxygen Flow Rate (L/min) Positive well nourished and well developed General Appearance ED: well developed HEENT Reports normocephalic and head/scalp atraumatic Eyes PERRL and EOMs intact bilaterally Neck supple Chest Wall inspection of chest normal and palpation of chest normal Resp normal respiratory effort Resp Narrative: Expiratory wheezes bilaterally. Cardio regular rate and regular rhythm GI GI Narrative: Abdomen soft with suprapubic tenderness. Palpation: soft Extremity normal to inspection Neuro oriented x3 and no sensory deficits noted Sensorium / Orientation: alert Motor Exam: strength 5/5 throughout Skin no rashes or lesions noted MDM MDM MDM Narrative Medical decision making narrative: Cook catheter was placed on arrival with no urine output. Lab work obtained. Patient required up to 5 L nasal cannula to maintain oxygen saturations. He was given Zofran and a small dose of Toradol. EKG ordered along with chest x-ray. History & Record Review Discussion w/independent historian: Patient Additional record(s) reviewed:: Prior ED visit Lab Data Attestation: I reviewed the patient's lab results. Labs: Laboratory Results - last 24 hr 08/19/22 08/19/22 23:26 23:26 WBC 12.2 H RBC 4.21 L Hgb 13.8 Hct 39.1 L MCV 92.9 MCH 32.8 H MCHC 35.3 RDW Std Deviation 43.7 RDW Coeff of Alejandro 12.9 Plt Count 209 MPV 9.8 Immature Gran % (Auto) 0.500 Neut % (Auto) 81.9 H Lymph % (Auto) 9.5 L [place] % (Auto) 6.0 Eos % (Auto) 1.7 Baso % (Auto) 0.4 Absolute Neuts (auto) 10.0 H Absolute Lymphs (auto) 1.15 Nucleated RBC % 0 Sodium 132 L Potassium 4.8 Chloride 98 Carbon Dioxide 23.0 Anion Gap 11 BUN 61 H Creatinine 7.22 H Estim Creat Clear Calc 11.37 Est GFR (MDRD) Af Amer 10 L Est GFR (MDRD) Non-Af 8 L BUN/Creatinine Ratio 8.4 L Glucose 112 H Calcium 8.8 Radiography Chest X-Ray - ED: 1 View, Read by ED Physician and CHF Diagnostic Testing: Clinical Impression(s) from Imaging Studies Chest X-Ray 08/19/22 23:50 IMPRESSION: Bilateral reticular opacities could represent interstitial pulmonary edema, viral bronchiolitis among other etiology. Electronically Signed: Ricardo Arcos MD at 0:30 EDT , Abdomen/Pelvis CT 08/19/22 23:58 IMPRESSION: undefined EKG Initial EKG: Attestation: I personally reviewed and interpreted this EKG as follows: Interpretation: Sinus Rhythm (Sinus at 77 with no acute ischemia.) Management Discussion w/another healthcare provider: Clothing Man (Urology, Dr. Dickerson.) Treatment and Re-Evaluation :: Patient was given breathing treatments which did somewhat improve his shortness of breath. CBC reveals white count of 12.2 with 82% neutrophils. Chemistry studies significant for renal failure with a creatinine of 7.22. Potassium is 4.8. Chest x-ray per my interpretation reveals congestive heart failure. After x-rays reviewed Nitropaste is placed on the patient's chest. Given that he does not have any urine output I did not feel that Lasix would be beneficial. Patient was sent back for a repeat CT flank. In addition to the 2 mm distal ureter stone he also has a 4 mm stone more proximally in the ureter. I spoke with Dr. Dickerson. He presented to the emergency room to take the patient to the OR for stent placement. Discharge Plan Dx/Rx/DC Orders Clinical Impression: Ureterolithiasis, Acute renal failure Disposition Disposition: Acute Care Hospital [facility] Discharge Date/Time: 08/20/22 03:29
[2022-08-19] MEDS: Ipratropium/Albuterol Sulfate 3 ML AMPUL.NEB INHALATION (23:38)
[2022-08-19 23:39] VITALS: PULSE 68; RESP 23
[2022-08-19] MEDS: Ondansetron 4 MG/2 ML Vial IV (23:46)
[2022-08-19 23:47] LABS: Anion Gap 11 (5-15); BUN 61 mg/dL (7-18); BUN/Creat Ratio 8.4 RATIO (10-20); Calcium,Total 8.8 mg/dL (8.5-10.1); Chloride 98 mmol/L (98-107); Creatinine, Serum 7.22 mg/dL (0.70-1.30); EST Glomerular Filtration Rate 8 mL/min (>60); Est Glom Filt Rate - Afr Amer 10 mL/min (>60); Estimated Creatinine Clearance 11.37 ml/min; Glucose 112 mg/dL (74-106); Potassium 4.8 mmol/L (3.5-5.1); Sodium Level 132 mmol/L (136-145)
--- NOTE | 2022-08-19 23:50 | RAD_ITS ---
INDICATION: sob EXAMINATION: Frontal view of the chest COMPARISON: Chest x-ray January 22, 2019. FINDINGS: Frontal view of the chest was obtained. Suboptimal inspiration. The cardiac silhouette is not enlarged. Reticular opacities through the majority of the lungs bilaterally. No pneumothorax. RAD/Chest 1 View (Portable) IMPRESSION: Bilateral reticular opacities could represent interstitial pulmonary edema, viral bronchiolitis among other etiology. Electronically Signed: Ricardo Arcos MD at 0:30 EDT ,
[2022-08-19] MEDS: Albuterol 2.5 MG/3 ML VIAL.NEB. INHALATION ×2 (23:57)
[2022-08-19 23:58] VITALS: PULSE 77; RESP 20
--- NOTE | 2022-08-19 23:58 | CT_ITS ---
EXAM: CT abdomen and pelvis without contrast HISTORY: kidney stone, renal failure TECHNIQUE: No intravenous contrast. A radiation dose optimization technique was used for this scan. COMPARISON: CT abdomen and pelvis August 17, 2022. LIMITATIONS: Motion artifact. LOWER CHEST: Trace bilateral pleural effusions, new since the prior exam. Linear atelectasis in the lung bases bilaterally, increased. Interlobular septal thickening bilaterally suggestive of pulmonary vascular congestion, new since the prior exam. LIVER: Mild fatty infiltration. Cyst in the left lobe. GALLBLADDER: Normal. BILE DUCTS: Normal. PANCREAS: Normal. SPLEEN: Mildly enlarged. ADRENAL GLANDS: Normal. KIDNEYS/URETERS/BLADDER: Absent right kidney. Left perinephric stranding, similar to the prior exam. 3 mm hemorrhagic cyst in the left kidney. Several punctate nonobstructing left renal stones. A 2 mm stone is at the left ureterovesicular junction, unchanged in position. A 4 mm stone in the proximal left ureter is new since prior exam. Moderate left hydronephrosis and mild left hydroureter are grossly stable. Moderate left periureteral fat stranding is increased. A Cook catheter is in the collapsed bladder. AORTA: Normal caliber. BOWEL/MESENTERY: Normal. APPENDIX: Normal. PERITONEUM: Trace free pelvic fluid. REPRODUCTIVE ORGANS: Normal. BONES/SOFT TISSUES: No acute fracture. OTHER: None. CONCLUSION: Left nephrolithiasis. 2 mm obstructing stone at the left ureterovesicular junction is unchanged in position since the prior exam. Associated moderate left hydronephrosis is again identified. A 4 mm stone in the proximal left ureter is new since the prior study. Electronically Signed: Ricardo Arcos MD at 1:37 EDT , CT/Abdomen/Pelvis without Cont IMPRESSION: undefined
[2022-08-20] VITALS (15 sets, daily range): BP systolic 116–152; BP diastolic 69–86; PULSE 66–88; RESP 16–20; TEMP 36.4–37.9; O2SAT 88–97; BMI 31.1; BMI 30.6
[2022-08-20] MEDS: Nitroglycerin Oint 1 INCH PACKET 0.5 INCH TD (00:12)
--- NOTE | 2022-08-20 02:59 | PCM.HP.STD ---
[facility] - [facility] General Date of Admission: 08/20/22 Chief Complaint: Obstructing stone and solitary kidney HPI Narrative CHRISTINA LR, is a 66 male with a history of a solitary left kidney history of recurrent kidney stones who also has a history of hypertension hyperlipidemia history of coronary artery stent and heart disease in the past who presents to the hospital with no urine output for 24 hours. Prior to this he presented to the ER with a 2 mm stone in the distal ureter. He was sent home with expectant management and most likely been able to pass a stone in the past he says he is always passed little stones. However he has not been able to pass his very small stone in the distal left ureter and has no urine output for 24 hours and now has an elevated creatinine of 7.22 and a BUN of 60. He had a Cook catheter placed in the emergency room and had no urine output. I was called regarding this patient I would admit the patient for his obstructing kidney stone and renal failure and the operating team has been called in and we plan to take the patient tonight for a cystoscopy and stent placement as soon as possible. [facility] Medical History Atherosclerosis of coronary artery of [place] heart without angina pectoris Back pain Cardiology follow-up encounter Dietary restriction Dysplasia of one kidney Essential hypertension High cholesterol History of stress test Hyperlipidemia Kidney stones Non-smoker Wears glasses Home Medications aspirin 81 mg tablet,delayed release 81 mg PO DAILY@0800 01/23/19 [Rx Last Taken 03/11/21] latanoprost 0.005 % eye drops 1 drp ophthalmic (eye) DAILY 08/03/20 [History Last Taken 03/17/21] multivitamin 1 tab PO DAILY 08/03/20 [History Last Taken 03/17/21] brimonidine 0.15 % eye drops (Alphagan P) 1 drp ophthalmic (eye) BID 02/21/21 [History Last Taken 03/17/21] ondansetron 4 mg disintegrating tablet 4 mg PO Q8H PRN PRN Nausea #10 tabs 08/17/22 [Rx Last Taken Unknown] oxycodone-acetaminophen 5 mg-325 mg tablet (Percocet) 1 tab PO Q6H PRN pain 3 days #12 tabs 08/17/22 [Rx Last Taken Unknown] Allergy/AdvReac Type Severity Reaction Status Date / Time No Known Allergies Allergy Verified 08/19/22 23:09 Family History Father , Age 83 CAD (coronary artery disease) CABG x 3, stents Heart disease Mother Diabetes Dementia Surgical History Hx of colonoscopy Hx of hernia repair Presence of stent in coronary artery (~04/25/06) Social History Smoking Status: Never smoker alcohol intake: current alcohol intake frequency: a few times a month substance use type: does not use caffeine: No ROS ROS Narrative Patient presented to the emergency room with signs of shortness of breath. Cardiovascular Cardiovascular: Denies chest pain or claudication Respiratory/Chest Respiratory/Chest: Denies hemoptysis Gastrointestinal Gastrointestinal: Reports abdominal pain Genitourinary Genitourinary: Reports oliguria Vital Signs Vital Signs Vital Signs: 08/19/22 23:09 08/19/22 23:39 08/19/22 23:58 Temperature 97.2 F L Temperature Source Temporal Pulse Rate 79 68 77 Respiratory Rate 20 H 23 H 20 H Respiratory Pattern Tachypnea Tachypnea Blood Pressure 158/85 H Blood Pressure Mean 109 Blood Pressure Source Blood Pressure Position Blood Pressure Location Pulse Ox 91 Oxygen Delivery Method Room Air Oxygen Flow Rate (L/min) 08/20/22 02:18 08/20/22 02:22 08/20/22 02:23 Temperature 98.5 F Temperature Source Oral Pulse Rate 70 69 Respiratory Rate 19 H 19 H Respiratory Pattern Normal Blood Pressure 139/82 H 139/82 H Blood Pressure Mean 101 101 Blood Pressure Source Monitor Blood Pressure Position Semi-Fowlers Blood Pressure Location Left Arm Pulse Ox 94 93 Oxygen Delivery Method Nasal Cannula Nasal Cannula Oxygen Flow Rate (L/min) 3 08/20/22 02:29 Temperature Temperature Source Pulse Rate Respiratory Rate Respiratory Pattern Blood Pressure Blood Pressure Mean Blood Pressure Source Blood Pressure Position Blood Pressure Location Pulse Ox 88 Oxygen Delivery Method Room Air Oxygen Flow Rate (L/min) Weight Weight: 107.1 kg Body Mass Index (BMI) 31.1 Physical Exam Narrative He is alert and oriented x3 Const alert and oriented x3 General Appearance: cooperative and well developed HEENT normocephalic Eyes PERRL and EOMs intact bilaterally Neck General: trachea midline Lymph Lymphatic: no lymphadenopathy noted Resp normal air movement Cardio regular rate and regular rhythm GI normal to inspection, nondistended, normoactive bowel sounds, soft to palpation, non-tender and non-distended Extremity normal capillary refill, no clubbing, cyanosis or edema and no calf tenderness Skin Lesions: no lesions Rashes: no rashes Neuro CN's II-XII intact bilaterally and no focal motor deficits Psych thought process normal Results Medical Records Data Attestation: I reviewed the patient's medical records Medical records narrative: I reviewed the patient's CBC and BMP had an elevated creatinine also reviewed the patient's CT scan which demonstrated a stone in the distal left ureter and also another stone in the proximal left ureter he is got a solitary left kidney. Lab / Micro Data Attestation: I reviewed the patient's lab results. Result Diagrams: 08/19/22 23:26 08/19/22 23:26 Labs: Laboratory Results - last 24 hr 08/19/22 23:26: WBC 12.2 H, RBC 4.21 L, Hgb 13.8, Hct 39.1 L, MCV 92.9, MCH 32.8 H, MCHC 35.3, RDW Std Deviation 43.7, RDW Coeff of Alejandro 12.9, Plt Count 209, MPV 9.8, Immature Gran % (Auto) 0.500, Neut % (Auto) 81.9 H, Lymph % (Auto) 9.5 L, [place] % (Auto) 6.0, Eos % (Auto) 1.7, Baso % (Auto) 0.4, Absolute Neuts (auto) 10.0 H, Absolute Lymphs (auto) 1.15, Nucleated RBC % 0 08/19/22 23:26: Sodium 132 L, Potassium 4.8, Chloride 98, Carbon Dioxide 23.0, Anion Gap 11, BUN 61 H, Creatinine 7.22 H, Estim Creat Clear Calc 11.37, Est GFR (MDRD) Af Amer 10 L, Est GFR (MDRD) Non-Af 8 L, BUN/Creatinine Ratio 8.4 L, Glucose 112 H, Calcium 8.8 Radiology Impression Chest X-Ray 08/19/22 23:50 IMPRESSION: Bilateral reticular opacities could represent interstitial pulmonary edema, viral bronchiolitis among other etiology. Electronically Signed: Ricardo Arcos MD at 0:30 EDT , Abdomen/Pelvis CT 08/19/22 23:58 IMPRESSION: undefined Assessment & Plan Assessment/Plan (1) Urolithiasis: PLAN: Obstructing stone in the distal left ureter and also proximal left kidney (2) Kidney stone on left side: PLAN: Plan for cystoscopy and left stent placement tonight as an emergency (3) Hematuria: PLAN: Blood is probably from his kidney stone (4) Hyperkalemia: PLAN: Significantly elevated creatinine from acute renal failure while to monitor his electrolytes serial BMP and what to monitor urine output after stent is placed with a Cook catheter (5) Renal insufficiency: PLAN: On the monitor his urine output after stent placement it should resolve with relief of obstruction. PLAN: Plan 66-year-old male with a solitary left kidney presents to the emergency room with no urine output continued blood and pain to the left side he has a small stone in the distal left ureter that stuck and not able to pass he also has a 4 mm stone in the proximal left ureter. Obtain consent today for cystoscopy left stent placement he understands we will have to have a stent in until his kidney resolves and his kidney improves function and then want to set him up at a later date for ureteroscopy and laser lithotripsy. The family also made aware that they are planning on traveling and I told him that this may depend on the findings as to what happens.
--- NOTE | 2022-08-20 03:30 | PCM.PN.HOSP ---
Reason for Visit Reason for Visit: Diagnoses Hyperkalemia (08/20/22) Calculus of kidney (08/20/22) Urinary calculus, unspecified (08/20/22) Disorder of kidney and ureter, unspecified (08/20/22) Hematuria, unspecified (08/20/22) Subjective Subjective Patient is a 66-year-old male with a significant history of CAD status post stent and solitary left-sided kidney who presents emergency department with no urine output. Patient presented to the emergency department for the third time in the same week on 08/19/2022. Last time he made urine was he was asked to produce urine at the emergency department on 08/18/2022. Reportedly his urine had blood in it at that time. Associated with patient's symptoms is nausea, vomiting and shortness of breath. He denies any fever. Patient was noted to have a 2 mm obstructing stone at the left UVJ that is unchanged with associated moderate hydroureteronephrosis. A new 4 mm stone was also seen in the proximal left ureter which was new. Cook catheter was placed at the emergency department. The Cook catheter did not return with any urine. Patient was awakes from emergency department to be OR for possible cystoscopy with stent placement. Also on 08/17/2022 patient was at the hospital for a kidney stone. CT of abdomen pelvis showed distal left ureteral calculus with moderate left hydro ureteronephrosis; left nephro lithiasis; solitary left kidney; and bladder wall thickening possibly nondistention. He was treated and was discharged home. Also on 08/18/2022 patient presents emergency department with left flank pain associated with the previously diagnosed left kidney stone and hydroureteronephrosis; mild hyperkalemia. He was treated and discharged at the emergency department with the hope that patient will pass the kidney stone. Objective Data Objective Data Vital Signs: Vital Signs Temp Pulse Resp BP Pulse Ox O2 Del Method O2 Flow Rate 98.1 F 75 18 141/79 H 92 Nasal Cannula 2 08/20/22 03:26 08/20/22 03:26 08/20/22 03:26 08/20/22 03:26 08/20/22 03:26 08/20/22 03:26 08/20/22 03:26 Oxygen Flow Rate (L/min) 2 Oxygen Delivery Method Nasal Cannula Weight: 107.1 kg Body Mass Index (BMI) 31.1 Lab / Micro Data Result Diagrams: 08/19/22 23:26 08/19/22 23:26 Labs: Laboratory Results - last 24 hr 08/19/22 23:26: WBC 12.2 H, RBC 4.21 L, Hgb 13.8, Hct 39.1 L, MCV 92.9, MCH 32.8 H, MCHC 35.3, RDW Std Deviation 43.7, RDW Coeff of Alejandro 12.9, Plt Count 209, MPV 9.8, Immature Gran % (Auto) 0.500, Neut % (Auto) 81.9 H, Lymph % (Auto) 9.5 L, [place] % (Auto) 6.0, Eos % (Auto) 1.7, Baso % (Auto) 0.4, Absolute Neuts (auto) 10.0 H, Absolute Lymphs (auto) 1.15, Nucleated RBC % 0 08/19/22 23:26: Sodium 132 L, Potassium 4.8, Chloride 98, Carbon Dioxide 23.0, Anion Gap 11, BUN 61 H, Creatinine 7.22 H, Estim Creat Clear Calc 11.37, Est GFR (MDRD) Af Amer 10 L, Est GFR (MDRD) Non-Af 8 L, BUN/Creatinine Ratio 8.4 L, Glucose 112 H, Calcium 8.8 Radiography Diagnostic Testing: Radiology Impression Chest X-Ray 08/19/22 23:50 IMPRESSION: Bilateral reticular opacities could represent interstitial pulmonary edema, viral bronchiolitis among other etiology. Electronically Signed: Ricardo Arcos MD at 0:30 EDT , Abdomen/Pelvis CT 08/19/22 23:58 IMPRESSION: undefined Physical Exam Narrative Physical exam: General: Well-nourished, well-developed. Head: Normocephalic, atraumatic, no tenderness Eyes: Vision is grossly intact. EOMI ENT, no trauma, moist mucous membranes, no rhinorrhea Neck: Nontender, No thyromegaly. CVS: Regular rate and rhythm. S1-S2 present. No murmur, gallop or rub. Respiratory : clear to auscultation bilaterally, chest wall nontender, no wheezing Abdomen: Soft, nontender, nondistended, normal bowel sounds, no masses : Deferred Back: Nontender, no CVA tenderness, no midline spinal tenderness, deformities, step-offs Extremities: Nontender full range of motion, no trauma Skin: Normal color, no trauma, abrasions Neuro: Alert, oriented, cranial nerves II through XII grossly intact. Psychiatry: Normal mood. Normal affect. Not depressed. Not anxious. Assessment & Plan Assessment/Plan (1) Kidney stone on left side: (2) Hydroureteronephrosis: (3) High output congestive heart failure: PLAN: Plan Solitary Left nephrolithiasis with left hydroureteronephrosis/CHARLY Impression of abdomen/pelvis CT by radiologist:Left nephrolithiasis. 2 mm obstructing stone at the left ureterovesicular junction is unchanged in position since the prior exam. Associated moderate left hydronephrosis is again identified. A 4 mm stone in the proximal left ureter is new since the prior study. Creatinine presentation was 7.22. His creatinine a day before presentation was 2.89; and his creatinine previous days without was 1.44. BUN is markedly elevated at 61. BUN over creatinine is 11.37. Like secondary to obstruction. Patient taken to the OR for possible cystoscopy with stent placement. Follow-up after procedure. Trend BMP. Heart output congestive heart failure with hypoxia Like secondary poor clearance for the kidneys. Impression chest x-ray by radiology:Bilateral reticular opacities could represent interstitial pulmonary edema, viral bronchiolitis among other etiology. Chest x-ray was visualized and independently interpreted and agree radiology interpretation. Oxygen saturation on room air of 88% and required supplemental oxygenation. Titrate oxygen as necessary. We will get an echocardiogram to further assess the heart. Mild hyponatremia Likely secondary to hypovolemia from congestive heart failure and kidney failure. Trend BMP. CAD status post stent With recent hematuria hold aspirin for now. DVT prophylaxis SCD Charges/Coding Visit Charges Inpatient E&M: 52791 Init Hosp L3
--- NOTE | 2022-08-20 04:08 | PCM.OPRPT ---
Report of Operation Date of Procedure: 08/20/22 Pre-Operative Diagnosis: Obstructing left kidney stones, hydronephrosis, acute renal failure Post-Operative Diagnosis: The same Surgery/Procedure Performed:: Cystoscopy retrograde pyelogram and left stent placement Description of Surgical Findings:: Patient was taken back to the operating room after smooth induction of a MAC local he was placed in dorsolithotomy position. The penis and testicles were prepped and draped in usual sterile fashion. I placed 30 cc of lidocaine jelly into the urethra and then I went into the bladder with a 21 [place] rigid cystourethroscope the penile meatus was wide open the pendulous meatus was clear there is no strictures or scar tissues along the channel the sphincter was intact the prostate was normal once I got into the bladder he had a decompressed bladder I filled the bladder up and identified the left ureteral orifice I then use a Pollick catheter and a 0.038 Glidewire and attempted to cannulate the ureter immediately the wire hit stone that was causing complete obstruction after some gentle manipulation I was able to get the wire past the stone up into the ureter and then advanced a wire up as high as possible and then I tried to place a stent but the stent was coiling it would not go any higher so then using fluoroscopy I backed out the wire and then I put a Pollick catheter and we pulled out and did a retrograde pyelogram and there was coiled ureter was it was causing some severe angulation so then under fluoroscopy I guided the wire up into the kidney and then once the wire was in good place to straighten out the kinked ureter then over the wire I placed a 6 [place] by 26 cm stent the stent went all the way to the kidney and then pulled the wire and the stent coiled up in the kidney and coiled in the bladder in good position I then pulled back and the stent just a little bit to make sure it was in proper position and then we put a Cook catheter in the patient's bladder. And what to monitor his urine output very closely the medical service has been consulted to assist with his care since he is in acute renal failure I would expect that his kidneys to recover once the obstruction is is opened up with the stent. Always possible he may need another intervention like a nephrostomy tube but for now we will just use a stent and hopefully this will open up his kidney and start making urine. Surgeon: Sal Dickerson Type of Anesthesia: General Drains: stent left side, 6fr x 26cm Estimated Blood Loss (mL): none Admit VTE Documentation VTE Present on Admission: No VTE Mechan Device Prophylaxis: SCD's VTE Pharm Prophylaxis ordered?: No
[2022-08-20] MEDS: 0.9% Normal Saline 1,000 ML 30 ML IV (05:40)
[2022-08-20 06:15] LABS: Absolute Lymphocyte Count 0.77 X10^3/uL (0.83-4.51); Absolute Neutrophil Count 9.1 X10^3/uL (2.0-7.7); Basophil# 0.03 X10^3/uL; Basophil% 0.3 % (0-1); Eosinophil# 0.06 X10^3/uL; Eosinophils% 0.6 % (0-5); Hematocrit 33.7 % (40-54); Hemoglobin 11.8 g/dL (13.0-16.5); Lymphocyte # 0.77 X10^3/ul (0.83-4.51); Lymphocyte % 7.2 % (19-41); Mean Corpuscular Hgb 32.8 pg (27.0-32.0); Mean Corpuscular Volume 93.6 fL (80-94); Mean Platelet Vol. 10.1 fl (6.2-12.0); Monocyte# 0.75 X10^3/uL; NRBC Flagged by Analyzer 0 % (0-5); Neutrophil # 9.09 X10^3/uL (2.7-7.7); Neutrophil % 84.4 % (47-70); Platelet Count 177 K/mm3 (150-450); RBC Distribution Width CV 12.6 % (11.6-14.6); RBC Distribution Width SD 43.4 fl (35.1-43.9); White Blood Count 10.8 K/mm3 (4.4-11.0)
[2022-08-20 07:04] LABS: Anion Gap 11 (5-15); BUN 66 mg/dL (7-18); BUN/Creat Ratio 9.1 RATIO (10-20); Calcium,Total 8.3 mg/dL (8.5-10.1); Chloride 102 mmol/L (98-107); Creatinine, Serum 7.22 mg/dL (0.70-1.30); EST Glomerular Filtration Rate 8 mL/min (>60); Est Glom Filt Rate - Afr Amer 10 mL/min (>60); Estimated Creatinine Clearance 11.37 ml/min; Glucose 117 mg/dL (74-106); Potassium 4.6 mmol/L (3.5-5.1); Sodium Level 133 mmol/L (136-145)
--- NOTE | 2022-08-20 07:24 | PN.HOSP_ITS ---
Reason for Visit Reason for Visit: Anuria Subjective Subjective Mr. Huffman is a 66-year-old white male who has a history of solitary left kidney and recurrent kidney stones who presented to the emergency department on 08/20/2022 secondary to about 24 hours of no urine output. He presented to the emergency department on the as he felt he had a kidney stone. Imaging revealed a 2 mm kidney stone in the distal ureter of his remaining left kidney and he was discharged home with expectant management anticipating that he would most likely be able to pass the stone as it was very small but unfortunately he had not been able to pass the stone and developed an area. Serum creatinine had increased from 2.89-7.22 and just a little over 24 hours. Potassium was normal on presentation. Repeat imaging done showed left nephrolithiasis with a 2 mm obstructing stone that had unchanged in position with moderate hydronephrosis and a new 4 mm stone in the proximal left ureter was also apparent. Urology admitted the patient and took him to the OR early this morning at which time cystoscopy with retrograde pyelogram and left stent placement was pursued. Patient states his pain is resolved. Urine output has been good via his Cook through the night. Eating without any difficulty. Has required oxygen through the night. Patient does not wear oxygen at baseline and has no noted history of sleep apnea although he does admit that his states he intermittently snores. Objective Data Objective Data Vital Signs: Vital Signs Temp Pulse Resp BP Pulse Ox O2 Del Method O2 Flow Rate 98.3 F 66 16 124/78 H 93 Nasal Cannula 2 08/20/22 05:03 08/20/22 05:03 08/20/22 05:15 08/20/22 05:03 08/20/22 05:15 08/20/22 05:15 08/20/22 05:15 Oxygen Flow Rate (L/min) 2 Oxygen Delivery Method Nasal Cannula Weight: 105.233 kg Body Mass Index (BMI) 30.6 Intake & Output: Intake and Output for Last 24 Hours 08/18/22 08/19/22 08/20/22 23:59 23:59 23:59 Output Total 1100 / 1100 Balance -1100 / -1100 Lab / Micro Data Result Diagrams: 08/20/22 05:37 08/20/22 05:37 Labs: Laboratory Results - last 24 hr 08/19/22 23:26: WBC 12.2 H, RBC 4.21 L, Hgb 13.8, Hct 39.1 L, MCV 92.9, MCH 32.8 H, MCHC 35.3, RDW Std Deviation 43.7, RDW Coeff of Alejandro 12.9, Plt Count 209, MPV 9.8, Immature Gran % (Auto) 0.500, Neut % (Auto) 81.9 H, Lymph % (Auto) 9.5 L, [place] % (Auto) 6.0, Eos % (Auto) 1.7, Baso % (Auto) 0.4, Absolute Neuts (auto) 10.0 H, Absolute Lymphs (auto) 1.15, Nucleated RBC % 0 08/19/22 23:26: Sodium 132 L, Potassium 4.8, Chloride 98, Carbon Dioxide 23.0, Anion Gap 11, BUN 61 H, Creatinine 7.22 H, Estim Creat Clear Calc 11.37, Est GFR (MDRD) Af Amer 10 L, Est GFR (MDRD) Non-Af 8 L, BUN/Creatinine Ratio 8.4 L, Glucose 112 H, Calcium 8.8 08/20/22 05:37: WBC 10.8, RBC 3.60 L, Hgb 11.8 L, Hct 33.7 L, MCV 93.6, MCH 32.8 H, MCHC 35.0, RDW Std Deviation 43.4, RDW Coeff of Alejandro 12.6, Plt Count 177, MPV 10.1, Immature Gran % (Auto) 0.500, Neut % (Auto) 84.4 H, Lymph % (Auto) 7.2 L, [place] % (Auto) 7.0, Eos % (Auto) 0.6, Baso % (Auto) 0.3, Absolute Neuts (auto) 9.1 H, Absolute Lymphs (auto) 0.77 L, Nucleated RBC % 0 08/20/22 05:37: Sodium 133 L, Potassium 4.6, Chloride 102, Carbon Dioxide 20.0 L , Anion Gap 11, BUN 66 H, Creatinine 7.22 H, Estim Creat Clear Calc 11.37, Est GFR (MDRD) Af Amer 10 L, Est GFR (MDRD) Non-Af 8 L, BUN/Creatinine Ratio 9.1 L, Glucose 117 H, Calcium 8.3 L Radiography Diagnostic Testing: Radiology Impression Chest X-Ray 08/19/22 23:50 IMPRESSION: Bilateral reticular opacities could represent interstitial pulmonary edema, viral bronchiolitis among other etiology. Electronically Signed: Ricardo Arcos MD at 0:30 EDT , Abdomen/Pelvis CT 08/19/22 23:58 IMPRESSION: undefined Physical Exam Const alert, oriented x3, no apparent distress, healthy appearing and well nourished Constitutional Narrative: Upper middle-aged white male sitting up in bed eating breakfast and watching television, appears comfortable and nontoxic HEENT head/scalp atraumatic and moist oral mucous membranes Head and Scalp: normocephalic Resp normal respiratory effort, no retractions, no use of accessory muscles and clear to auscultation bilaterally Auscultation: Negative for rales, rhonchi or wheezes Cardio regular rate, regular rhythm, S1 normal heart sound, S2 normal heart sound, no murmurs, no rub, no gallops and no clicks GI normal to inspection, nondistended, normoactive bowel sounds, soft to palpation and non-tender Extremity no clubbing, cyanosis or edema Neuro oriented x3, moves all extremities and no focal motor deficits Speech: speech normal Psych affect normal Psych Narrative: Very pleasant, appropriate Assessment & Plan Assessment/Plan (1) Ureterolithiasis: (2) Acute renal failure: (3) Hydroureteronephrosis: (4) Hypoxia: PLAN: Plan Left nephrolithiasis with hydronephrosis -Status post cystoscopy with retrograde pyelogram and left stent placement -Management per primary service-urology -No signs of infection CHARLY -With solitary kidney and obstructive nephropathy from kidney stone -Serum creatinine remains at 7.22 however it has not even been 12 hours since his admitting serum creatinine -Urine output is improving and patient has had 1100 cc out since admission -We will give IV fluids as I do suspect patient will have a post obstructive diuresis--> LR at 100 cc/h -Repeat renal function this afternoon -Expect renal function to slowly improve with obstruction resolved -Avoid nephrotoxins -No need for urgent [employer] -If renal function does not improve would consider nephrology consultation in the next 24 hours -Patient did have 1 dose of Toradol in the emergency department prior to labs resulting Hypoxia -No signs of respiratory distress -Did have some mild desaturations overnight but was also postoperative -Wean oxygen as able -If unable to wean oxygen may need further work-up -Chest x-ray did show some bilateral reticular opacities that could be interstitial pulmonary edema versus viral bronchiolitis and trace bilateral pleural effusions were seen in the bases of his chest x-ray -Could be related to some volume overload with his kidney not working well CAD/HPL/HTN -Restart home aspirin when okay with primary service -Patient is not on any medication for blood pressure or cholesterol -Monitor blood pressures here but thus far in normal range -Outpatient follow-up for lipid management Solitary left kidney -Patient states this was related to trauma from his youth and sports -Has a right kidney but is atrophic and nonfunctional Glaucoma -Suspect open-angle -Continue home eyedrops DVT prophylaxis -SCDs would recommend chemoprophylaxis if stay is expected to be extended otherwise recommend early and frequent ambulation CODE STATUS -Full code Charges/Coding Visit Charges Inpatient E&M: 56288 Subs Hosp L2
[2022-08-20] MEDS: Lactated Ringers 1,000 ML 100 ML IV (07:53)
[2022-08-20] MEDS: BRIMONIDINE 0.15% 5 ML Bottle 1 DRP OPHTHALMIC ×2 (07:56→17:18)
[2022-08-20] MEDS: Latanoprost 0.005% 1 Bottle 1 DRP OPHTHALMIC (07:56)
--- NOTE | 2022-08-20 10:10 | PN.URO_ITS ---
Subjective Subjective 66-year-old male presented to the hospital with acute renal insufficiency renal failure no urine output hydronephrosis and obstructing stone in the distal left ureter 2 mm in size also had another 4 mm stone in the proximal ureter last night he underwent cystoscopy and stent placement. Urine output since then has been good. I would expect his creatinine to return back to the baseline within reasonable time. Urine output is very good. We will Hep-Lock his IV fluids, DC Cook, ambulate out of bed. Objective Data Objective Data Vital Signs: Vital Signs Temp Pulse Resp BP Pulse Ox O2 Del Method O2 Flow Rate 98.3 F 66 16 124/78 H 93 Nasal Cannula 2 08/20/22 05:03 08/20/22 05:03 08/20/22 05:15 08/20/22 05:03 08/20/22 05:15 08/20/22 08:07 08/20/22 05:15 Oxygen Flow Rate (L/min) 2 Oxygen Delivery Method Nasal Cannula Weight: 105.233 kg Body Mass Index (BMI) 30.6 Intake & Output: Intake and Output for Last 24 Hours 08/18/22 08/19/22 08/20/22 23:59 23:59 23:59 Intake Total 66.5 / 66.5 Output Total 1100 / 1100 Balance -1033.5 / -1033.5 Lab / Micro Data Result Diagrams: 08/20/22 05:37 08/20/22 05:37 Labs: Laboratory Results - last 24 hr 08/19/22 23:26: WBC 12.2 H, RBC 4.21 L, Hgb 13.8, Hct 39.1 L, MCV 92.9, MCH 32.8 H, MCHC 35.3, RDW Std Deviation 43.7, RDW Coeff of Alejandro 12.9, Plt Count 209, MPV 9.8, Immature Gran % (Auto) 0.500, Neut % (Auto) 81.9 H, Lymph % (Auto) 9.5 L, Martin % (Auto) 6.0, Eos % (Auto) 1.7, Baso % (Auto) 0.4, Absolute Neuts (auto) 10.0 H, Absolute Lymphs (auto) 1.15, Nucleated RBC % 0 08/19/22 23:26: Sodium 132 L, Potassium 4.8, Chloride 98, Carbon Dioxide 23.0, Anion Gap 11, BUN 61 H, Creatinine 7.22 H, Estim Creat Clear Calc 11.37, Est GFR (MDRD) Af Amer 10 L, Est GFR (MDRD) Non-Af 8 L, BUN/Creatinine Ratio 8.4 L, Glucose 112 H, Calcium 8.8 08/20/22 05:37: WBC 10.8, RBC 3.60 L, Hgb 11.8 L, Hct 33.7 L, MCV 93.6, MCH 32.8 H, MCHC 35.0, RDW Std Deviation 43.4, RDW Coeff of Alejandro 12.6, Plt Count 177, MPV 10.1, Immature Gran % (Auto) 0.500, Neut % (Auto) 84.4 H, Lymph % (Auto) 7.2 L, Martin % (Auto) 7.0, Eos % (Auto) 0.6, Baso % (Auto) 0.3, Absolute Neuts (auto) 9.1 H, Absolute Lymphs (auto) 0.77 L, Nucleated RBC % 0 08/20/22 05:37: Sodium 133 L, Potassium 4.6, Chloride 102, Carbon Dioxide 20.0 L , Anion Gap 11, BUN 66 H, Creatinine 7.22 H, Estim Creat Clear Calc 11.37, Est GFR (MDRD) Af Amer 10 L, Est GFR (MDRD) Non-Af 8 L, BUN/Creatinine Ratio 9.1 L, Glucose 117 H, Calcium 8.3 L Radiography Diagnostic Testing: Radiology Impression Chest X-Ray 08/19/22 23:50 IMPRESSION: Bilateral reticular opacities could represent interstitial pulmonary edema, viral bronchiolitis among other etiology. Electronically Signed: Ricardo Arcos MD at 0:30 EDT , Abdomen/Pelvis CT 08/19/22 23:58 IMPRESSION: undefined Physical Exam Const alert and oriented x3 General Appearance: cooperative HEENT normocephalic, head/scalp atraumatic, EAC's normal and TM's normal bilaterally Eyes PERRL and EOMs intact bilaterally Pupil: sluggish Neck no lymphadenopathy, supple and no JVD General: trachea midline Lymph Lymphatic: no lymphadenopathy noted, lymphedema and lymphadenopathy Resp normal respiratory effort, normal air movement and clear to auscultation bilaterally Cardio regular rate, regular rhythm and peripheral pulses 2+ throughout GI soft to palpation, non-tender and non-distended Extremity normal capillary refill and no clubbing, cyanosis or edema General Extremity: no tenderness to palpation of joints or extremities Skin no rashes or lesions noted General Skin Exam: turgor normal Lesions: no lesions Rashes: no rashes Neuro CN's II-XII intact bilaterally Speech: speech normal Motor Exam: strength 5/5 throughout; Negative for general weakness Psych thought process normal, cooperative and affect normal Appearance: appropriate Assessment & Plan Assessment/Plan (1) Ureterolithiasis: PLAN: Status post stent placement we will have my office look at the schedule and set him up for ureteroscopy and laser and treatment of the stones next available date. (2) Acute renal failure: PLAN: Resolving after stent placement (3) Hydroureteronephrosis: PLAN: Resolving after stent placement PLAN: Plan Hep-Lock IV fluids DC Cook ambulate may be home tomorrow if his labs are trending in the right direction.
[2022-08-20] MEDS: 0.9% Saline Lock 10 ML Syringe IV (21:54)
[2022-08-21 03:14] VITALS: BP 129/81; PULSE 77; RESP 18; TEMP 37.4; O2SAT 91
[2022-08-21 05:02] LABS: Absolute Lymphocyte Count 0.96 X10^3/uL (0.83-4.51); Absolute Neutrophil Count 6.7 X10^3/uL (2.0-7.7); Basophil# 0.05 X10^3/uL; Basophil% 0.6 % (0-1); Eosinophil# 0.15 X10^3/uL; Eosinophils% 1.7 % (0-5); Hematocrit 36.5 % (40-54); Hemoglobin 12.5 g/dL (13.0-16.5); Lymphocyte # 0.96 X10^3/ul (0.83-4.51); Lymphocyte % 11.2 % (19-41); Mean Corp Hgb Conc 34.2 g/dL (32-36); Mean Corpuscular Hgb 32.4 pg (27.0-32.0); Mean Corpuscular Volume 94.6 fL (80-94); Mean Platelet Vol. 10.1 fl (6.2-12.0); Monocyte# 0.68 X10^3/uL; Monocyte% 7.9 % (0-10); NRBC Flagged by Analyzer 0 % (0-5); Neutrophil # 6.71 X10^3/uL (2.7-7.7); Platelet Count 218 K/mm3 (150-450); RBC Distribution Width CV 13.1 % (11.6-14.6); RBC Distribution Width SD 44.8 fl (35.1-43.9); Red Blood Count 3.86 M/mm3 (4.6-6.2); White Blood Count 8.6 K/mm3 (4.4-11.0)
[2022-08-21 05:41] LABS: Anion Gap 7 (5-15); BUN 53 mg/dL (7-18); BUN/Creat Ratio 18.5 RATIO (10-20); Calcium,Total 9.3 mg/dL (8.5-10.1); Chloride 109 mmol/L (98-107); Creatinine, Serum 2.86 mg/dL (0.70-1.30); EST Glomerular Filtration Rate 24 mL/min (>60); Est Glom Filt Rate - Afr Amer 29 mL/min (>60); Estimated Creatinine Clearance 28.71 ml/min; Glucose 124 mg/dL (74-106); Potassium 4.8 mmol/L (3.5-5.1); Sodium Level 139 mmol/L (136-145)
--- NOTE | 2022-08-21 07:52 | DS.PCM_ITS ---
Providers Date of Admission: 08/20/22 Date of Discharge: 08/21/22 Primary Care Physician: Yaima Massey, Consultations 08/20/22 03:14 Consult: Hospitalist Routine Consulting Provider: Giovanni Luevano Reason for Consult: medical consutl for renal insufficiency and SOG EMERGENT Consult: Yes MD Notified: Yes Date Notified: 08/20/22 Time Notified: 03:30 Method of Notification: Text Reason For Visit: ACUTE RENAL FAILURE INSUFFICIENCY KIDNEY STONE Diagnosis Discharge Diagnosis (1) Ureterolithiasis: Status: Acute Code(s): N20.1 - Calculus of ureter Plan: Status post stent placement we will have my office look at the schedule and set him up for ureteroscopy and laser and treatment of the stones next available date. (2) Acute renal failure: Status: Acute Code(s): N17.9 - Acute kidney failure, unspecified Plan: Resolving after stent placement (3) Hydroureteronephrosis: Status: Acute Code(s): N13.30 - Unspecified hydronephrosis Plan: Resolving after stent placement Plan Hep-Lock IV fluids DC Cook ambulate may be home tomorrow if his labs are trending in the right direction. Medications at Discharge Home Medications aspirin 81 mg tablet,delayed release 81 mg PO DAILY@0800 01/23/19 latanoprost 0.005 % eye drops 1 drp ophthalmic (eye) DAILY eye health 08/03/20 multivitamin 1 tab PO DAILY supplement 08/03/20 brimonidine 0.15 % eye drops (Alphagan P) 1 drp ophthalmic (eye) BID eye health 02/21/21 ondansetron 4 mg disintegrating tablet 4 mg PO Q8H PRN PRN Nausea #10 tabs 08/17/22 oxycodone-acetaminophen 5 mg-325 mg tablet (Percocet) 1 tab PO Q6H PRN pain 3 days #12 tabs 08/17/22 ciprofloxacin HCl 500 mg tablet (Cipro) 500 mg PO BID #10 tabs 08/21/22 Hospital Course Summary of Care Provided Minutes Spent on Discharge: 35 Hospital Course: 66-year-old male who presented to the hospital with obstruction from a 2 mm stone and a 4 mm stone he was admitted and immediately went to surgery for cystoscopy and stent placement it was a difficult stent placement. Then the catheter was removed the following day he has been urinating adequate volumes of urine his renal function is improving he has a low-grade fever so we will send home with antibiotics. His renal function is resolving his hydronephrosis resolved he thinks he passed his kidney stones. We will discharge him home to day with a stent and I have my office call him with instructions. Physical Exam Const alert and oriented x3 General Appearance: cooperative HEENT normocephalic, head/scalp atraumatic, EAC's normal and TM's normal bilaterally Eyes PERRL and EOMs intact bilaterally Pupil: sluggish Neck no lymphadenopathy, supple and no JVD General: trachea midline Lymph Lymphatic: no lymphadenopathy noted, lymphedema and lymphadenopathy Resp normal respiratory effort, normal air movement and clear to auscultation bilaterally Cardio regular rate, regular rhythm and peripheral pulses 2+ throughout GI soft to palpation, non-tender and non-distended Extremity normal capillary refill and no clubbing, cyanosis or edema General Extremity: no tenderness to palpation of joints or extremities Skin no rashes or lesions noted General Skin Exam: turgor normal Lesions: no lesions Rashes: no rashes Neuro CN's II-XII intact bilaterally Speech: speech normal Motor Exam: strength 5/5 throughout; Negative for general weakness Psych thought process normal, cooperative and affect normal Appearance: appropriate Medical Records Data Attestation: I reviewed the patient's medical records Weight / BMI Weight Weight: 105.233 kg Body Mass Index (BMI) 30.6 ABG / Lab / Microbiology Data Result Diagrams: 08/21/22 04:43 08/21/22 04:43 Laboratory: Laboratory Results - last 24 hr 08/21/22 04:43: WBC 8.6, RBC 3.86 L, Hgb 12.5 L, Hct 36.5 L, MCV 94.6 H, MCH 32.4 H, MCHC 34.2, RDW Std Deviation 44.8 H, RDW Coeff of Alejandro 13.1, Plt Count 218, MPV 10.1, Immature Gran % (Auto) 0.600, Neut % (Auto) 78.0 H, Lymph % (Auto) 11.2 L, [place] % (Auto) 7.9, Eos % (Auto) 1.7, Baso % (Auto) 0.6, Absolute Neuts (auto) 6.7, Absolute Lymphs (auto) 0.96, Nucleated RBC % 0 08/21/22 04:43: Sodium 139, Potassium 4.8, Chloride 109 H, Carbon Dioxide 23.0, Anion Gap 7, BUN 53 H, Creatinine 2.86 H, Estim Creat Clear Calc 28.71, Est GFR (MDRD) Af Amer 29 L, Est GFR (MDRD) Non-Af 24 L, BUN/Creatinine Ratio 18.5, Glucose 124 H, Calcium 9.3 D/C Instructions Discharge Diet: No restrictions, Light diet - advance as tolerated and Soft diet Discharge Activity: Return to Normal Activity Call your doctor if you observe: Fever of 101 or Higher Please Follow Up With: Sal Dickerson MD When: Call office for instructions Meaningful Use Info Meaningful Use Diagnoses (Choose all that apply): None applicable Discharge Plan Admission Admit Date/Time: 08/20/22 03:08 Primary Reason for Your Visit: kidney stones Attending Provider: Sal Dickerson Primary Care Provider: Yaima Massey Consulting Providers: Giovanni Luevano ; Angi Perkins Discharge Orders/Prescriptions Prescriptions: New ciprofloxacin HCl [Cipro] 500 mg tablet 500 mg PO BID Qty: 10 0RF Continued latanoprost 0.005 % drops 1 drp OPHTHALMIC DAILY multivitamin Tablet 1 tab PO DAILY brimonidine [Alphagan P] 0.15 % drops 1 drp ophthalmic (eye) BID Rx Instructions: administer approximately 8 hours apart aspirin 81 MG tablet 81 mg PO DAILY@0800 0RF oxycodone-acetaminophen [Percocet] 5-325 mg tablet 1 tab PO Q6H PRN (Reason: pain) 3 Days Qty: 12 0RF ondansetron 4 mg tablet,disintegrating 4 mg PO Q8H PRN PRN (Reason: Nausea) Qty: 10 0RF Referrals / Follow Up: Sal Dickerson MD [Med Staff - Active Staff] - Yaima Massey DO [Primary Care Provider] - Disposition Discharge Orders: Discharge Patient (Routine); Ordered 08/21/22 Ordered By: Dr. Sal Dickerson
--- NOTE | 2022-08-21 07:54 | PCM.DC ---
Discharge Instructions Diet Discharge Diet: No restrictions, Light diet - advance as tolerated and Soft diet Dressing / Incision Call your doctor if you observe: Fever of 101 or Higher Follow Up Care Please Follow Up With: Sal Dickerson MD Test Results: Test results from this visit will be discussed in further detail at your follow-up appointment, if applicable. Discharge Plan Admission Admit Date/Time: 08/20/22 03:08 Primary Reason for Your Visit: kidney stones Attending Provider: Sal Dickerson Primary Care Provider: Yaima Massey Consulting Providers: Giovanni Luevano ; Angi Perkins Discharge Orders/Prescriptions Prescriptions: New ciprofloxacin HCl [Cipro] 500 mg tablet 500 mg PO BID Qty: 10 0RF Continued latanoprost 0.005 % drops 1 drp OPHTHALMIC DAILY multivitamin Tablet 1 tab PO DAILY brimonidine [Alphagan P] 0.15 % drops 1 drp ophthalmic (eye) BID Rx Instructions: administer approximately 8 hours apart aspirin 81 MG tablet 81 mg PO DAILY@0800 0RF oxycodone-acetaminophen [Percocet] 5-325 mg tablet 1 tab PO Q6H PRN (Reason: pain) 3 Days Qty: 12 0RF ondansetron 4 mg tablet,disintegrating 4 mg PO Q8H PRN PRN (Reason: Nausea) Qty: 10 0RF Referrals / Follow Up: Sal Dickerson MD [Med Staff - Active Staff] - Yaima Massey DO [Primary Care Provider] - Disposition Discharge Orders: Discharge Patient (Routine); Ordered 08/21/22 Ordered By: Dr. Sal Dickerson
[2022-08-21 08:23] VITALS: BP 133/94; PULSE 65; RESP 18; TEMP 36.7; O2SAT 90
--- NOTE | 2022-08-21 10:12 | PHA.DC.MR ---
Pharmacy Service has performed discharge medication reconciliation for this patient. The patient's discharge medication list was reviewed for discrepancies and discrepancies were resolved. Medication education papers prepared, patient discharged before I was able to aids counselor. Home Medications aspirin 81 mg tablet,delayed release 81 mg PO DAILY@0800 01/23/19 latanoprost 0.005 % eye drops 1 drp ophthalmic (eye) DAILY eye health 08/03/20 multivitamin 1 tab PO DAILY supplement 08/03/20 brimonidine 0.15 % eye drops (Alphagan P) 1 drp ophthalmic (eye) BID eye health 02/21/21 ondansetron 4 mg disintegrating tablet 4 mg PO Q8H PRN PRN Nausea #10 tabs 08/17/22 oxycodone-acetaminophen 5 mg-325 mg tablet (Percocet) 1 tab PO Q6H PRN pain 3 days #12 tabs 08/17/22 ciprofloxacin HCl 500 mg tablet (Cipro) 500 mg PO BID #10 tabs 08/21/22
== END 2022-08-21 09:57 | disposition home or self-care (01) | DRG 660 ==
LOC: ED 23:38 → SDC 08-20 02:06 → AC 08-20 02:07 → MS3 08-20 03:15 → SDC 08-20 03:16 → MS3 08-20 03:16
PROVIDERS: Internal Medicine; Admitting Provider Urology; Emergency Provider Emergency Medicine; PCP Family Medicine; Referring Provider Urology; Visit Provider Urology
PROC: 0T778DZ Dilation of Left Ureter with Intraluminal Device, Via Natural or Artificial Opening Endoscopic (ICD-10-PCS; principal; 2022-08-20 03:30)
DX: N13.2 Hydronephrosis with renal and ureteral calculous obstruction (principal); N13.8 Other obstructive and reflux uropathy; E87.1 Hypo-osmolality and hyponatremia; Q61.4 Renal dysplasia; I50.83 High output heart failure; N17.9 Acute kidney failure, unspecified; I11.0 Hypertensive heart disease with heart failure; I25.10 Atherosclerotic heart disease of native coronary artery without angina pectoris; E78.00 Pure hypercholesterolemia, unspecified; E86.1 Hypovolemia; N26.1 Atrophy of kidney (terminal); H40.10X0 Unspecified open-angle glaucoma, stage unspecified; R09.02 Hypoxemia; Z79.82 Long term (current) use of aspirin; Z79.899 Other long term (current) drug therapy; Z87.442 Personal history of urinary calculi; Z95.5 Presence of coronary angioplasty implant and graft
CPT/HCPCS: 36415; 51702; 71045; 74176; 80048; 85025; 93005; 94640; 94668; 99285; J7030; J7120; A4216; C1769; C2617; J2405

== ENCOUNTER 2022-08-23 12:27 | Day surgery (SDC) | payer OTHER, SELFPAY ==
[2022-08-23] MEDS: Lactated Ringers 1,000 ML 15 ML IV (13:01)
[2022-08-23 13:02] VITALS: BP 135/83; PULSE 83; RESP 18; TEMP 36.5; O2SAT 94; BMI 28.2
[2022-08-23] MEDS: Cefazolin 2 GM in 0.9% Normal Saline 100 ML IV (14:25)
--- NOTE | 2022-08-23 15:31 | DCINST_ITS ---
Discharge Instructions Diet Discharge Diet: No restrictions, Light diet - advance as tolerated and Soft diet Activity Discharge Activity: Return to Normal Activity Follow Up Care Please Follow Up With: Sal Dickerson MD When: Call for an appointment next week for stent removal Test Results: Test results from this visit will be discussed in further detail at your follow- up appointment, if applicable. Discharge Plan Admission Primary Reason for Your Visit: laser stone in left kidney, and stent placement Attending Provider: Sal Dickerson Primary Care Provider: Yaima Massey Discharge Orders/Prescriptions Prescriptions: New ciprofloxacin HCl [Cipro] 500 mg tablet 500 mg PO BID Qty: 10 0RF oxycodone-acetaminophen [Endocet] 5-325 mg tablet 1 tab PO Q6H PRN (Reason: pain) 7 Days Qty: 14 0RF Continued latanoprost 0.005 % drops 1 drp OPHTHALMIC DAILY multivitamin Tablet 1 tab PO DAILY brimonidine [Alphagan P] 0.15 % drops 1 drp ophthalmic (eye) BID Rx Instructions: administer approximately 8 hours apart aspirin 81 MG tablet 81 mg PO DAILY@0800 0RF ciprofloxacin HCl [Cipro] 500 mg tablet 500 mg PO BID Qty: 10 0RF Referrals / Follow Up: Sal Dickerson MD [Med Staff - Active Staff] - Yaima Massey DO [Primary Care Provider] - Disposition Disposition (needs filled in before D/C Order can be placed): Home, Self Care
--- NOTE | 2022-08-23 15:31 | HP.PCM_ITS ---
HPI - General General Date of Service: 08/23/22 Chief Complaint: Left ureteral stent and calculi HPI Narrative CHRISTINA LR, is a 66 M who presents last week with a 2 mm stone in the distal left ureter failed to pass the underwent cystoscopy and emergency stent place ment he now presents for treatment of this possible stone also he has some other stones in the left kidney were to treat. Told the patient he may need another stent depending on situation [facility] Medical History (Updated 08/22/22 @ 08:35 by Sunni Lazaro) Atherosclerosis of coronary artery of [place] heart without angina pectoris Back pain Cardiology follow-up encounter Dietary restriction Dysplasia of one kidney Essential hypertension Glaucoma High cholesterol History of stress test Hyperlipidemia Kidney stones Non-smoker Non-smoker Wears glasses Home Medications aspirin 81 mg tablet,delayed release 81 mg PO DAILY@0800 01/23/19 [Rx Last Taken 08/19/22] latanoprost 0.005 % eye drops 1 drp ophthalmic (eye) DAILY eye health 08/03/20 [History Last Taken 08/22/22] multivitamin 1 tab PO DAILY supplement 08/03/20 [History Last Taken 08/22/22] brimonidine 0.15 % eye drops (Alphagan P) 1 drp ophthalmic (eye) BID eye health 02/21/21 [History Last Taken 08/22/22] ciprofloxacin HCl 500 mg tablet (Cipro) 500 mg PO BID #10 tabs 08/21/22 [Rx Last Taken 08/22/22] ciprofloxacin HCl 500 mg tablet (Cipro) 500 mg PO BID #10 tabs 08/23/22 [Rx Last Taken Unknown] oxycodone-acetaminophen 5 mg-325 mg tablet (Endocet) 1 tab PO Q6H PRN pain 7 days #14 tabs 08/23/22 [Rx Last Taken Unknown] Allergy/AdvReac Type Severity Reaction Status Date / Time No Known Allergies Allergy Verified 08/23/22 13:00 Family History Father , Age 83 CAD (coronary artery disease) CABG x 3, stents Heart disease Mother Diabetes Dementia Surgical History Hx of colonoscopy Hx of hernia repair Presence of stent in coronary artery (~11/22/06) Social History Smoking Status: Never smoker alcohol intake: current alcohol intake frequency: a few times a month substance use type: does not use caffeine: No Vital Signs Vital Signs Vital Signs: 08/23/22 13:02 08/23/22 13:02 Temperature 97.7 F L Temperature Source Temporal Pulse Rate 83 Respiratory Rate 18 Respiratory Pattern Normal Blood Pressure 135/83 H Blood Pressure Mean 100 Blood Pressure Source Monitor Blood Pressure Position Semi-Fowlers Blood Pressure Location Left Arm Pulse Ox 94 Oxygen Delivery Method Room Air Weight Weight: 97.069 kg Body Mass Index (BMI) 28.2
--- NOTE | 2022-08-23 15:32 | OP.PCM_ITS ---
Report of Operation Date of Procedure: 08/23/22 Pre-Operative Diagnosis: Left stent for obstructing stone Post-Operative Diagnosis: The same Surgery/Procedure Performed:: Cystoscopy, left retrograde pyelogram, ureteroscopy and extraction of foreign object, stent, ureteroscopy and laser lithotripsy of stones in the left kidney and stent placement Description of Surgical Findings:: This is a 66-year-old male has a solitary left kidney passes stones frequently presented to the emergency room with a 2 mm stone, he has a history of having multiple multiple stones that he passes all the time on his own so very likely we thought he is going to pass a stone but he failed to pass a stone so then he presented to the emergency room in renal failure so took the patient and had to place a stent in the middle the night for as an emergency because of his renal failure. Kidney function has then improved and now presents for ureteroscopy laser lithotripsy of any stone fragments that could be causing obstruction. Of note prior to surgery patient thought he had passed. Patient was taken back to the operating room after smooth induction of anesthesia he was placed in dorsolithotomy position. The penis and testicles were prepped and draped in usual sterile fashion. I went into the bladder with a 21 Beninese rigid cystourethroscope once I got inside the bladder immediately noticed that there was no stent coming out from the left ureteral orifice fluoroscopy was then used and we could see that the distal part of the stent had pulled up into the ureter. So the stent that had been placed in prior surgery had retracted up into the ureter. This made the ureter extremely inflamed and was impossible to see where the orifice was so I first tried using a Glidewire to identify the orifice but it was very difficult and then I used an angled tip wire but I still could not find the orifice and then fortunately between using fluoroscopy and just patient timing and probing I was able to fortunately find the ureteral orifice and a pacer wire up past next to the old the old stent had been pulled up up into the kidney over the wire I placed a Pollick catheter did a retrograde pyelogram confirmed that was in the kidney which I was. I then used a Bentson wire and left in place as a safety wire so that would be left for the entire case not lose access. This was taped to the drapes. I then went in with a semirigid ureteroscope into the distal ureter and I used a ureteroscopy grasper grasper and I grabbed the end of the stent that was in the ureter and then I was able to extract it from the ureter completely. After successfully ex tracting the stent from the ureter then I put a wire up in the left kidney and then over the wire went in with a flexible ureteroscope went all the way up to the left kidney with flexible ureteroscope and encountered a lot of debris in the left kidney made the visual visualization quite difficult had spent some time to really look around to see if there is any other stone fragments there was a stone in the upper pole that was lasered little tiny pieces and a bunch of debris that was also treated and then I found another larger fragment at the 6 mm fragment in the midpole of the left kidney we used a 270 ?m laser fiber energy settings were 0.1 0.5 J and 12 Hz. Took about 10 to 15 minutes to laser the stone completely into small little pieces that should pass in around and then I inspected the upper pole midpole and the lower pole the kidney there was no other major fragments and tiny fragments here and there but no major fragments the need to be treated. He did have a lot of little tiny calcifications embedded in the papilla but nothing that needs to be treated. I then worked my way down the ureter and then I remove the ureteroscope I then backloaded over the safety wire with the 21 Beninese rigid cystourethroscope and then I placed a new stent on the left side since he still had a lot of fragments up in the kidney and since the kidney was still swollen and the ureter was still extremely swollen I decided to place another stent for safety and I put in a 6 Beninese by 28 cm stent longer stent to make sure that in pull up into the kidney like the last stent. And I did also leave a string on the stent so that in case of pulled up we could remove it in the office without any difficulty. One of the string was tapered and cut short so would not be accidentally pulled out sooner than then necessary patient's anesthetic was reversed he was taken back to the PACU in good condition he will see me next week for cystoscopy stent removal Surgeon: Sal Dickerson Type of Anesthesia: General Drains: stent left side Admit VTE Documentation VTE Present on Admission: No VTE Mechan Device Prophylaxis: SCD's VTE Pharm Prophylaxis ordered?: No
[2022-08-23 15:36] VITALS: BP 135/83; BP 146/98; PULSE 76; RESP 16; TEMP 36.4; O2SAT 100
[2022-08-23 15:45] VITALS: BP 135/83; BP 147/86; PULSE 63; RESP 16; O2SAT 96
[2022-08-23 16:02] VITALS: BP 131/92; BP 135/83; PULSE 68; RESP 16; O2SAT 97
[2022-08-23 16:03] VITALS: BP 131/92; BP 135/83; PULSE 64; RESP 16; TEMP 36.6; O2SAT 96
[2022-08-23 16:40] VITALS: BP 135/83
== END 2022-08-23 16:44 | disposition home or self-care (01) ==
LOC: SDC 12:27 → AC 12:29
PROVIDERS: PCP Family Medicine; Referring Provider Urology; Visit Provider Urology
PROC: 0TJ98ZZ Inspection of Ureter, Via Natural or Artificial Opening Endoscopic (ICD-10-PCS; CPT 52352; principal; 2022-08-23 14:20)
DX: N20.0 Calculus of kidney (principal); I11.0 Hypertensive heart disease with heart failure; I50.83 High output heart failure; I25.10 Atherosclerotic heart disease of native coronary artery without angina pectoris; Q61.4 Renal dysplasia; E78.00 Pure hypercholesterolemia, unspecified; Z79.82 Long term (current) use of aspirin; Z79.899 Other long term (current) drug therapy; Z95.5 Presence of coronary angioplasty implant and graft
CPT/HCPCS: 52356; 00918; 76000; J7120; C1769; J2405

== ENCOUNTER → 2023-03-16 | Outpatient (CLI) | payer OTHER, SELFPAY ==
[2023-03-16 15:17] LABS: Absolute Lymphocyte Count 1.81 X10^3/uL (0.83-4.51); Absolute Neutrophil Count 5.1 X10^3/uL (2.0-7.7); Basophil# 0.07 X10^3/uL; Basophil% 0.9 % (0-1); Eosinophil# 0.15 X10^3/uL; Eosinophils% 1.9 % (0-5); Hematocrit 41.9 % (40-54); Hemoglobin 14.3 g/dL (13.0-16.5); Lymphocyte # 1.81 X10^3/ul (0.83-4.51); Lymphocyte % 23.5 % (19-41); Mean Corp Hgb Conc 34.1 g/dL (32-36); Mean Corpuscular Hgb 32.3 pg (27.0-32.0); Mean Corpuscular Volume 94.6 fL (80-94); Mean Platelet Vol. 10.1 fl (6.2-12.0); Monocyte# 0.52 X10^3/uL; Monocyte% 6.8 % (0-10); NRBC Flagged by Analyzer 0 % (0-5); Neutrophil # 5.09 X10^3/uL (2.7-7.7); Neutrophil % 66.1 % (47-70); Platelet Count 232 K/mm3 (150-450); RBC Distribution Width CV 13.5 % (11.6-14.6); RBC Distribution Width SD 46.5 fl (35.1-43.9); Red Blood Count 4.43 M/mm3 (4.6-6.2); White Blood Count 7.7 K/mm3 (4.4-11.0)
[2023-03-16 15:48] LABS: Hemoglobin A1c 5.3 % (3.8-5.6)
[2023-03-16 15:59] LABS: AST(SGOT) 15 U/L (15-37); Alanine Aminotransfer ALT/SGPT 34 U/L (16-61); Albumin, Serum 3.8 g/dL (3.2-5.0); Alkaline Phosphatase 94 U/L (45-117); Anion Gap 5 (5-15); BUN 18 mg/dL (7-18); BUN/Creat Ratio 14.9 RATIO (10-20); Calcium,Total 8.7 mg/dL (8.5-10.1); Chloride 110 mmol/L (98-107); Cholesterol 185 mg/dL (200); Creatinine, Serum 1.21 mg/dL (0.70-1.30); EST Glomerular Filtration Rate 64 mL/min (>60); Est Glom Filt Rate - Afr Amer 77 mL/min (>60); Globulin 3.7 g/dL (2.2-4.2); Glucose 107 mg/dL (74-106); High Density Lipoprotein 29 mg/dL; PSA,Total - Annual Screen 0.71 ng/mL (0.00-4.00); Protein, Total 7.5 g/dL (6.4-8.2); Sodium Level 141 mmol/L (136-145); Thyroid Stim Hormone (TSH) 4.62 uIU/mL (0.358-3.74); Triglycerides 527 mg/dL
== END | disposition home or self-care (01) ==
LOC: MTLAB 13:28
PROVIDERS: PCP Family Medicine; Referring Provider Family Medicine; Visit Provider Family Medicine
DX: Z00.00 Encounter for general adult medical examination without abnormal findings (principal); Z13.0 Encounter for screening for diseases of the blood and blood-forming organs and certain disorders involving the immune mechanism; Z12.5 Encounter for screening for malignant neoplasm of prostate; E78.5 Hyperlipidemia, unspecified
CPT/HCPCS: 36415; 80053; 80061; 83036; 84153; 84443; 85025; G0103

== ENCOUNTER → 2023-04-20 | Outpatient (CLI) | payer OTHER, SELFPAY ==
[2023-04-20 13:19] LABS: Free T3 2.8 pg/mL (2.18-3.98); T4 Free Direct 1.07 ng/dL (0.76-1.46); Thyroid Stim Hormone (TSH) 5.34 uIU/mL (0.358-3.74)
[2023-04-24 15:08] LABS: Thyroid Peroxidase AB 11 IU/mL (0-34); Thyroid Stim Immunoglob <0.10 IU/L (0.00-0.55)
== END | disposition home or self-care (01) ==
LOC: MTLAB 10:54
PROVIDERS: PCP Family Medicine; Referring Provider Family Medicine; Visit Provider Family Medicine
DX: E78.5 Hyperlipidemia, unspecified (principal)
CPT/HCPCS: 36415; 84439; 84443; 84445; 84481; 86376

== ENCOUNTER → 2023-05-08 | Outpatient (CLI) | payer OTHER, SELFPAY ==
--- NOTE | 2023-05-08 13:29 | US_ITS ---
EXAM: US SOFT TISSUES HEAD AND NECK, THYROID CLINICAL INDICATION: elevated TSH TECHNIQUE: Greyscale and color doppler imaging was performed of the thyroid gland. COMPARISON: No relevant prior studies available. FINDINGS: LEFT THYROID LOBE: The left thyroid lobe measures 4.7 x 1.3 x 1.5 cm. There is a left thyroid cyst measuring 0.6 cm. TI-RADS points: 0. TI-RADS category: TR1. This nodule is benign and no FNA or follow-up is necessary. Homogeneous echotexture with normal vascularity. RIGHT THYROID LOBE: The right thyroid lobe measures 3.9 x 1.3 x 0.8 cm. Homogeneous echotexture with normal vascularity. No thyroid nodules are present. ISTHMUS: The thyroid isthmus measures 2.2 cm. No thyroid nodules are present. US/Thyroid IMPRESSION: There is a left thyroid cyst measuring 0.6 cm. TI-RADS points: 0. TI-RADS category: TR1. This nodule is benign and no FNA or follow-up is necessary. Otherwise, normal thyroid ultrasound. Electronically Signed: Moisés Aguilar DO at 23:23 EST ,
== END | disposition home or self-care (01) ==
LOC: US 13:28
PROVIDERS: PCP Family Medicine; Referring Provider Family Medicine; Visit Provider Family Medicine
DX: R79.89 Other specified abnormal findings of blood chemistry (principal)
CPT/HCPCS: 76536

== ENCOUNTER → 2023-06-11 | Outpatient (CLI) | payer OTHER, SELFPAY ==
[2023-06-11 15:56] LABS: Anion Gap 7 (5-15); BUN 20 mg/dL (7-18); BUN/Creat Ratio 12.3 RATIO (10-20); Calcium,Total 9.4 mg/dL (8.5-10.1); Chloride 101 mmol/L (98-107); Creatinine, Serum 1.62 mg/dL (0.70-1.30); EST Glomerular Filtration Rate 45 mL/min (>60); Est Glom Filt Rate - Afr Amer 55 mL/min (>60); Glucose 129 mg/dL (74-106); Potassium 3.9 mmol/L (3.5-5.1); Sodium Level 134 mmol/L (136-145)
== END | disposition home or self-care (01) ==
PROVIDERS: PCP Family Medicine; Referring Provider Nurse Practitioner Family; Visit Provider Nurse Practitioner Family
DX: R19.7 Diarrhea, unspecified (principal)
CPT/HCPCS: 36415; 80048

== ENCOUNTER → 2023-06-19 | Outpatient (CLI) | payer OTHER, SELFPAY ==
[2023-06-19 16:31] LABS: Anion Gap 7 (5-15); BUN 13 mg/dL (7-18); BUN/Creat Ratio 9.4 RATIO (10-20); Calcium,Total 9.3 mg/dL (8.5-10.1); Chloride 109 mmol/L (98-107); Creatinine, Serum 1.38 mg/dL (0.70-1.30); EST Glomerular Filtration Rate 55 mL/min (>60); Est Glom Filt Rate - Afr Amer 66 mL/min (>60); Glucose 114 mg/dL (74-106); Potassium 4.8 mmol/L (3.5-5.1); Sodium Level 141 mmol/L (136-145)
== END | disposition home or self-care (01) ==
PROVIDERS: PCP Family Medicine; Referring Provider Nurse Practitioner Family; Visit Provider Nurse Practitioner Family
DX: R19.7 Diarrhea, unspecified (principal)
CPT/HCPCS: 36415; 80048

== ENCOUNTER → 2023-07-30 | Outpatient (CLI) | payer OTHER, SELFPAY ==
--- OUTSIDE RECORDS SUMMARY | 2023-07-30 08:39 | XMS RPT_ITS | CCD ---
Author Name Unknown Address [address] [place] [address] Organization [facility] Results Test Name Value Interpretation Reference Range Facil ity Summary Purpose Family History No Family History Records Found Advance Directives No Advanced Directives Records Found Additional Source Comments (unrecognized sect ion and content) No Status Records Found INFORMATION SOURCE (unrecogn ized section and content) FOR RECORDS PERTAINING TO PATIENTS WHO ARE OR HAVE BEEN ENROLLED IN A CHEMICAL DEPENDENCY/SUBSTANCEABUSE PROGRAM, SOME INFORMATION MAY BE OMITTED. This clinical summary was aggregated from multiple sources. Caution should be exercised in using it in the provision of clinical care. This summary normalizes information from multiple sources, and as a consequence, information in this document may materially change the coding, format and clinical context of patient data. In addition, data may be omitted in some cases. CLINICAL DECISIONS SHOULD BE BASED ON THE PRIMARY CLINICAL RECORDS. [employer] provides no warranty or guarantee of the accuracy or completeness of information in this document.
[2023-07-30 10:23] LABS: Anion Gap 4 (5-15); BUN 28 mg/dL (7-18); BUN/Creat Ratio 21.1 RATIO (10-20); Calcium,Total 9.2 mg/dL (8.5-10.1); Chloride 110 mmol/L (98-107); Creatinine, Serum 1.33 mg/dL (0.70-1.30); EST Glomerular Filtration Rate 57 mL/min (>60); Est Glom Filt Rate - Afr Amer 69 mL/min (>60); Glucose 127 mg/dL (74-106); Sodium Level 140 mmol/L (136-145)
== END | disposition home or self-care (01) ==
PROVIDERS: PCP Family Medicine; Referring Provider Nurse Practitioner Family; Visit Provider Nurse Practitioner Family
DX: R79.89 Other specified abnormal findings of blood chemistry (principal)
CPT/HCPCS: 36415; 80048

== ENCOUNTER → 2023-08-07 | Outpatient (CLI) | payer OTHER, SELFPAY | END | disposition home or self-care (01) | LOC: LABSPEC 16:07 | PROVIDERS: PCP Family Medicine; Referring Provider Urology; Visit Provider Urology | DX: R31.0 Gross hematuria (principal) | CPT/HCPCS: 87077; 87086; 87088; 87186 ==

== ENCOUNTER → 2023-08-17 | Outpatient (CLI) | payer OTHER, SELFPAY ==
--- NOTE | 2023-08-17 17:53 | CT_ITS ---
EXAM: CT ABDOMEN AND PELVIS WITHOUT INTRAVENOUS CONTRAST CLINICAL INDICATION: ACUTE CYSTITIS TECHNIQUE: Helically acquired images were obtained of the abdomen and pelvis without intravenous contrast. This CT exam was performed using one or more of the following dose reduction techniques: automated exposure control, adjustment of the mA and/or kV according to patient size, and/or use of iterative reconstruction technique. RADIATION DOSE: CTDIvol = 17.61 mGy, DLP = 961.92 mGy-cm COMPARISON: No relevant prior studies available. FINDINGS: LOWER THORAX: Coronary artery calcifications. Lung bases are clear. No cardiomegaly. No significant pericardial effusion. ABDOMEN: LIVER: Unremarkable. Homogeneous. GALLBLADDER AND BILE DUCTS: Unremarkable. No calcified gallstones. No gallbladder distention or wall edema. No intra- or extrahepatic biliary ductal dilation. PANCREAS: Unremarkable. No focal cystic mass. SPLEEN: Unremarkable. Normal size without focal cystic or solid mass. ADRENALS: Unremarkable. No nodules. KIDNEYS AND URETERS: Absent right kidney. 3 mm nonobstructing calculus left kidney. Normal renal size and position. STOMACH AND BOWEL: Unremarkable. No stomach or bowel distention. No focal inflammatory change. PELVIS: APPENDIX: Normal appendix. BLADDER: Mild wall thickening of the urinary bladder that may be due to cystitis or muscular hypertrophy. REPRODUCTIVE: Unremarkable as visualized. No mass. ABDOMEN and PELVIS: INTRAPERITONEAL SPACE: Unremarkable. No ascites or other fluid collection. No free air. BONES/JOINTS: Unremarkable. No suspicious lytic or blastic abnormality. SOFT TISSUES: Unremarkable. No discrete abdominal or pelvic wall hernia. VASCULATURE: See above. LYMPH NODES: Unremarkable. No enlarged lymph nodes. CT/Abdomen/Pelvis without Cont IMPRESSION: 1. Mild wall thickening of the urinary bladder that may be due to cystitis or muscular hypertrophy. 2. Coronary artery disease. 3. Absent right kidney. 4. 3 mm nonobstructing calculus left kidney. Electronically Signed: Shahriar Harrison MD at 7:49 EDT ,
== END | disposition home or self-care (01) ==
PROVIDERS: PCP Family Medicine; Referring Provider Urology; Visit Provider Urology
DX: N30.00 Acute cystitis without hematuria (principal); Z87.442 Personal history of urinary calculi
CPT/HCPCS: 74176

== ENCOUNTER → 2024-03-20 | Outpatient (CLI) | payer OTHER, SELFPAY ==
[2024-03-20 18:10] LABS: Absolute Lymphocyte Count 1.87 X10^3/uL (0.83-4.51); Absolute Neutrophil Count 5.1 X10^3/uL (2.0-7.7); Basophil# 0.07 X10^3/uL; Basophil% 0.9 % (0-1); Eosinophils% 2.6 % (0-5); Hematocrit 38.9 % (40-54); Hemoglobin 13.6 g/dL (13.0-16.5); Lymphocyte # 1.87 X10^3/ul (0.83-4.51); Lymphocyte % 24.2 % (19-41); Mean Corpuscular Hgb 31.9 pg (27.0-32.0); Mean Corpuscular Volume 91.1 fL (80-94); Mean Platelet Vol. 10.4 fl (6.2-12.0); Monocyte# 0.46 X10^3/uL; NRBC Flagged by Analyzer 0 % (0-5); Neutrophil # 5.09 X10^3/uL (2.7-7.7); Neutrophil % 65.9 % (47-70); Platelet Count 244 K/mm3 (150-450); RBC Distribution Width CV 13.3 % (11.6-14.6); RBC Distribution Width SD 43.6 fl (35.1-43.9); Red Blood Count 4.27 M/mm3 (4.6-6.2); White Blood Count 7.7 K/mm3 (4.4-11.0)
[2024-03-20 18:56] LABS: AST(SGOT) 19 U/L (15-37); Alanine Aminotransfer ALT/SGPT 27 U/L (16-61); Albumin, Serum 3.7 g/dL (3.2-5.0); Alkaline Phosphatase 97 U/L (45-117); Anion Gap 6 (5-15); BUN 19 mg/dL (7-18); BUN/Creat Ratio 14.8 RATIO (10-20); Calcium,Total 9.1 mg/dL (8.5-10.1); Chloride 110 mmol/L (98-107); Cholesterol 170 mg/dL (200); Creatinine, Serum 1.28 mg/dL (0.70-1.30); EST Glomerular Filtration Rate 59 mL/min (>60); Est Glom Filt Rate - Afr Amer 72 mL/min (>60); Globulin 3.8 g/dL (2.2-4.2); Glucose 91 mg/dL (74-106); High Density Lipoprotein 29 mg/dL; PSA,Total - Annual Screen 0.64 ng/mL (0.00-4.00); Potassium 4.1 mmol/L (3.5-5.1); Protein, Total 7.5 g/dL (6.4-8.2); Sodium Level 140 mmol/L (136-145); Triglycerides 425 mg/dL
== END | disposition home or self-care (01) ==
PROVIDERS: PCP Family Medicine; Referring Provider Family Medicine; Visit Provider Family Medicine
DX: E78.5 Hyperlipidemia, unspecified (principal); Z12.5 Encounter for screening for malignant neoplasm of prostate; Z13.0 Encounter for screening for diseases of the blood and blood-forming organs and certain disorders involving the immune mechanism
CPT/HCPCS: 36415; 80053; 80061; 84153; 85025; 86850; 86900; 86901; G0103